=== PATIENT | male | born 1950 | race African-American/Black ===

== ENCOUNTER 2017-06-10 21:07 | Emergency (ER) | payer MEDICARE ==
[~2017-06-10] VITALS: Ht 182.8 cm; Wt 127.0 kg
[~2017-06-10 21:07] MED LIST: ABILIFY10 MG; ACCUNEB 0.0.63 MG/3; ALBUTEROL0.09 MG/A2 IH; AMOXICILLIN250 MG PO; AMOXIL250 MG/5 M PO; AMOXIL500 MG PO; ANTI-GAS80 MG PO; ASPIRIN ADULT L81 M2 PO; ATIVAN IM; ATIVAN R; ATIVAN0.5 MG PO; ATIVAN1 MG PO; ATIVAN2 MG IM; ATIVAN2 MG R; ATIVAN2 MG/ML IM; ATROVENT I0.5 MG/2.5; ATROVENT0.018 MG/A IH; AUGMENTIN 875875 MG PO; BACTRIM DS 8001 TA1 PO; BISACODYL10 MG RC; BLOOD PRESSURE MED; CEFUROXIME AXE250 MG PO; CIPRO500 MG PO; COLACE100 MG PO; COMPAZINE10 MG PO; COUMADIN1 MG PO; CRANBERRY500 M1 PO; DECADRON4 MG PO; DERMAFUNGAL T; DEXAMETHASONE0.5 MG PO; DILANTIN100 MG PO; DIOVAN40 MG PO; DOCUSATE SODIU100 M2 PO; DULCOLAX10 MG RC; DUONEB 3 MG/3 ML3 M1; FANAPT12 MG PO; FANAPT6 MG PO; FLEET ADULT ENEM1 EA R; FLURAZEPAM PO; FLURAZEPAM15 MG; GLUCAGON EMERGEN1 MG IJ; GLUCAGON EMERGEN1 MG SC; HALDOL0.5 M1 PO; HUMALOG100 U/ML SC; HUMULIN R100 U/ML; HUMULIN R100 U/ML SC; HYDROCODONE BIT1 T11 PO; INVANZ1 GM/50 ML IM; IPRATROPIUM; KEPPRA1000 MG PO; KEPPRA500 MG PO; LAMISIL AT11 TP; LANTUS100 U/ML SC; LATUDA; LATUDA60 MG PO; LAXATIVE5 MG PO; LISINOPRIL2.5 MG PO; LISINOPRIL5 MG PO; LORAZEPAM1 MG PO; LOSARTAN POTASS25 MG PO; MACROBID100 M1 PO; MAXALT MLT PO; MECLIZINE25 MG PO; METFORMIN ER500 MG PO; METFORMIN500 MG PO; METHADONE HYDRO10 MG PO; METHADONE10 MG PO; METHADOSE10 MG PO; MIRALAX17 GM PO; MIRALAX17 GM/PACK PO; MOM30 ML PO; MORPHINE S20 MG/1 ML PO; Metformin Hydr500 MG PO; NASONEX0.05 MG/AC; NEURONTIN300 MG PO; NEURONTIN400 MG PO; NEURONTIN600 MG PO; NICODERM14 MG/24 H; NOVOLIN 70/30 701 EA PO; NOVOLIN 70/30 701 EA SC; NOVOLIN 70/30 710 ML; NOVOLIN R100 U/ML SC; NOVOLOG FLEX100 U/ML SC; NOVOLOG MIX 70/33 ML SC; NOVOLOG1 UNIT/0.0 SC; NOVOLOG100 U/ML SC; NYSTATIN OINTME30 GM T; ONGLYZA5 MG PO; PERCOCET 325 MG1 TA5 PO; POTASSIUM CHLO10 MEQ PO; PRAVACHOL40 MG PO; PRILOSEC20 M1 PO; PRILOSEC20 MG PO; RANITIDINE150 MG PO; RISPERDAL0.5 MG PO; ROXANOL PO; ROXANOL RC; ROXICET 325 MG-1 TAB PO; ROXICET 325 MG/55 ML SL; SENOKOT1 TAB; SERTRALINE50 MG PO; SINEMET 25-1001 TA1 PO; SUDAFED60 M1 PO; SUMATRIPTAN SUC50 MG PO; Senokot1 TAB PO; THEO-24400 MG PO; THEOPHYLLINE 100 MG; TIMOLOL; TOPAMAX50 MG PO; TYLENOL325 M1 PO; VITAMIN D2000 IU PO; VITAMIN D32000 I1; VITAMIN D32000 IU PO; VITAMIN D32000 UNIT PO; XALATAN 0.005%2.5 ML; XALATAN 0.005%2.5 ML OPH; XALATAN 2.5 ML2.5 M1 OPH; ZANTAC 150150 MG PO; ZOFRAN ODT8 MG PO; ZOFRAN4 MG PO; [UNRECOGNIZED DRUG - OTHER]; [UNRECOGNIZED DRUG - OTHER] SL; [UNRECOGNIZED DRUG - OTHER] T; [UNRECOGNIZED DRUG - OTHER] TP; insulin SC
[2017-06-10 21:37] LABS: BASO % 0.3 % (0.0-1.0); EOS # 0.1 10*3/uL (0.0-0.4); EOS % 1.4 % (1.0-4.0); HEMATOCRIT 35.2 % (42.0-52.0); HEMOGLOBIN 11.4 g/dl (14.0-18.0); LYMPH # 3.8 10*3/uL (1.3-4.4); LYMPH % 39.7 % (27.0-41.0); MEAN CELL VOLUME 98.1 fl (80.0-94.0); MEAN CORPUSCULAR HGB 31.8 pg (27.0-31.0); MEAN CORPUSCULAR HGB CONC 32.4 g/dl (33.0-37.0); MEAN PLATELET VOLUME 9.8 fl (9.6-12.3); MONO # 0.5 10*3/uL (0.1-1.0); MONO % 5.4 % (3.0-9.0); NEUT % 52.8 % (47.0-73.0); PLATELET COUNT AUTOMATED 167 10*3/uL (130-400); RED BLOOD COUNT 3.59 10*6/uL (4.50-5.90); RED CELL DISTRI WIDTH 13.4 % (0-14.5); WHITE BLOOD COUNT 9.5 10*3/uL (4.8-10.8)
[2017-06-10 21:55] LABS: ALBUMIN 3.3 gm/dl (3.1-4.5); ALKALINE PHOSPHATASE 54 U/L (45-117); BILIRUBIN, TOTAL 0.2 mg/dl (0.2-1.0); BUN 18 mg/dl (7-24); CARBON DIOXIDE 27 mmol/L (21-32); CHLORIDE 107 mmol/L (98-107); EST GLOM FILT AFRICAN AMERICAN > 60 ml/min; GLUCOSE 252 mg/dL (65-99); POTASSIUM 3.9 mmol/L (3.5-5.1); SGOT/AST 17 IU/L (3-35); SGPT/ALT 18 U/L (12-78); SODIUM 141 mmol/L (136-145); TOTAL PROTEIN 7.8 gm/dL (6.4-8.2)
[2017-06-10 22:52] LABS: BILIRUBIN NEGATIVE (NEGATIVE); BLOOD TRACE-INTACT (NEGATIVE); CLARITY SL CLOUDY (CLEAR); COLOR YELLOW (YELLOW); GLUCOSE NEGATIVE (NEGATIVE); KETONE NEGATIVE (NEGATIVE); LEUKO ESTERASE 2+ (NEGATIVE); NITRITE POSITIVE (NEGATIVE); PH 5.5 (5.0-9.0); PROTEIN 1+ (NEGATIVE); SPECIFIC GRAVITY 1.025 (1.005-1.030); UROBILINOGEN 0.2 E.U./dl (0.2-1.0)
[2017-06-10 23:04] LABS: BACTERIA 4+; RBC 0-2 rbc/hpf (0-2); URINE REFLEX COMMENT YES (NO); WBC TNTC wbc/hpf (0-5)
[2017-06-10] MEDS ORDERED: CIPRO500 MG PO (23:20)
[2017-06-10 23:21] VITALS: BP 129/61
== END 2017-06-10 23:13 | disposition home or self-care (01) ==
LOC: ED 21:07
PROVIDERS: Emergency Medicine
DX: N39.0 Urinary tract infection, site not specified (principal); R41.82 Altered mental status, unspecified; E11.42 Type 2 diabetes mellitus with diabetic polyneuropathy; Z79.82 Long term (current) use of aspirin; Z79.899 Other long term (current) drug therapy; Z79.4 Long term (current) use of insulin; Z86.73 Personal history of transient ischemic attack (TIA), and cerebral infarction without residual deficits

== ENCOUNTER 2018-01-28 10:40 | Inpatient (IN) | payer MEDICARE ==
[~2018-01-28] VITALS: Ht 170.2 cm; Wt 112.9 kg
--- NOTE | ~2018-01-28 | CON ---
[place], [place] REPORT OF CONSULTATION NAME: ELVIA SHI UNIT #: [id number] ROOM: 530 DOCTOR: CHI VITALE,FEBRUARY BIRTHDATE: [birth year] DOS: 01/28/2018 HISTORY OF PRESENT ILLNESS: The patient is a 67-year-old -Slovenian male. He is mentally challenged, lives at [facility]. Apparently someone there had cultured a decubitus on his backside. The culture had numerous bacteria including pseudomonas, Morganella, ESBL E. coli and gram-positive cocci. They had attempted to place a PICC line on him to give him IV antibiotics there and were unsuccessful in getting the line. He was therefore sent in to [facility] for line placement. ID is consulted for possible infected sacral decubiti. He has been afebrile since admission. His WBCs are normal. The patient is alert, very poor historian due to him being mentally challenged. He does complain of pain with his buttock wounds when he is moved around and is somewhat resistive to care. He states he feels fine, having no other issues. PAST MEDICAL HISTORY: As above, as well as seizures, COPD, diabetes, again mental retardation, paranoid schizophrenia, peripheral neuropathy, TIA, glaucoma, bilateral foot surgery, cholecystectomy. SOCIAL HISTORY: Chronic [facility] resident. Nonsmoker, nondrinker. No illicit drug use. ALLERGIES: No known drug allergies. CURRENT MEDICATIONS: Include Lovenox, vancomycin, Zosyn, milk of mag, Dulcolax, Tylenol. LABORATORY DATA: Cultures of wound and blood cultures are pending. Lactic acid 2.0. WBC is 8.9, platelets 151. BUN 14, creatinine 1.24. LFTs within normal limits. REVIEW OF SYSTEMS: As above in history of present illness, unable to obtain further review of systems from patient given his cognitive status. Again, per usp also discussed, with no emesis, no diarrhea, no fevers. PHYSICAL EXAMINATION: VITAL SIGNS: Temperature 97.3, pulse 57, respirations 20, BP 143/74. GENERAL: A 67-year-old -Slovenian male, obese, in no acute distress. HEAD, EYES, EARS, NOSE AND THROAT: Normocephalic. Poor dentition. No thrush. LUNGS: Clear to auscultation bilaterally. Respirations even and unlabored. HEART: Regular rhythm. No murmur appreciated. ABDOMEN: Soft, nontender, positive bowel sounds, nondistended. EXTREMITIES: No edema. SKIN: Warm, dry, free of rashes. He has a tiny stage II in his gluteal cleft, as well as superficial stage II and now appears to be old scarring at the base of his buttocks. None of these have any sign of infection. They are all rather small, superficial. There is no induration, no surrounding discoloration, no purulent discharge, no odor. [place], [place] REPORT OF CONSULTATION NAME: ELVIA SHI UNIT #: [id number] ROOM: 530 DOCTOR: CHI VITALEFEBRUARY BIRTHDATE: [birth year] ASSESSMENT: Multiple stage II decubiti on his buttocks with no sign of infection. Culture was likely just contaminated from swab of the skin and area that would be frequently contaminated with stool, he is incontinent. PLAN: Stop all antibiotics. I did discuss the case with ____. From our standpoint, he could be discharged back to the usp with instructions that whatever they cultured is colonized, then does not need antibiotics. ADDENDUM I agree with the above plans as described after reviewing the labs, radiographs, microbiology and cultures. We will follow the patient up clinically and make adjustments appropriately. Thanks for allowing us to see the patient and participate in his care. EJFF MIRELES CNP BREANA MCCALL MD CM:CONSTR:REPORT OF CONSULTATION 1707 01/29/18 5626 interface
[2018-01-28 10:48] VITALS: BP 146/64
[2018-01-28] MEDS ORDERED: ASPIRIN81 M1 PO (11:31)
[2018-01-28 11:35] LABS: BASO % 0.2 % (0.0-1.0); EOS # 0.1 10*3/uL (0.0-0.4); EOS % 0.7 % (1.0-4.0); HEMATOCRIT 33.7 % (42.0-52.0); HEMOGLOBIN 10.8 g/dl (14.0-18.0); LYMPH # 2.8 10*3/uL (1.3-4.4); LYMPH % 31.8 % (27.0-41.0); MEAN CELL VOLUME 98.3 fl (80.0-94.0); MEAN CORPUSCULAR HGB 31.5 pg (27.0-31.0); MEAN PLATELET VOLUME 10.8 fl (9.6-12.3); MONO # 0.6 10*3/uL (0.1-1.0); MONO % 6.5 % (3.0-9.0); NEUT # 5.4 10*3/uL (2.3-7.9); NEUT % 60.4 % (47.0-73.0); PLATELET COUNT AUTOMATED 151 10*3/uL (130-400); RED BLOOD COUNT 3.43 10*6/uL (4.50-5.90); RED CELL DISTRI WIDTH 13.2 % (0-14.5); WHITE BLOOD COUNT 8.9 10*3/uL (4.8-10.8)
[2018-01-28 11:50] LABS: ALBUMIN 3.6 gm/dl (3.1-4.5); ALKALINE PHOSPHATASE 48 U/L (45-117); BUN 14 mg/dl (7-24); CHLORIDE 102 mmol/L (98-107); CREATININE 1.24 mg/dL (0.70-1.30); POTASSIUM 4.2 mmol/L (3.5-5.1); SGOT/AST 14 IU/L (3-35); SGPT/ALT 13 U/L (12-78); SODIUM 138 mmol/L (136-145)
[2018-01-28] MEDS ORDERED: CORRECTOL5 M1 PO (13:08)
[2018-01-28] MEDS ORDERED: ATORVASTATIN CA10 M1 PO (13:08)
[2018-01-28] MEDS ORDERED: CRANBERRY250 MG PO (13:09)
[2018-01-28] MEDS ORDERED: BYETTA10 MCG/0.1 SC (13:09)
[2018-01-28] MEDS ORDERED: FLOMAX0.4 MG PO (13:19)
[2018-01-28] MEDS ORDERED: GABAPENTIN600 MG PO (13:20)
[2018-01-28] MEDS ORDERED: HUMALOG100 UNIT/1 SQ ×2 (13:20→13:21)
[2018-01-28] MEDS ORDERED: PROBIOTIC GOLD1 EACH PO (13:22)
[2018-01-28] MEDS ORDERED: KEPPRA500 MG PO (13:22)
[2018-01-28] MEDS ORDERED: LORAZEPAM1 MG PO (13:23)
[2018-01-28] MEDS ORDERED: XALATAN 2.5 ML2.5 ML OP (13:23)
[2018-01-28] MEDS ORDERED: LORAZEPAM2 MG/1 ML IJ (13:23)
[2018-01-28] MEDS ORDERED: LOSARTAN POTASS25 M1 PO (13:24)
[2018-01-28] MEDS ORDERED: DOLOPHINE HCL10 MG PO (13:24)
[2018-01-28] MEDS ORDERED: MIRALAX POWDER255 G1 PO (13:25)
[2018-01-28] MEDS ORDERED: TOUJEO SOL300 UNIT/1 SQ (13:26)
[2018-01-28] MEDS ORDERED: MILK OF MA400 MG/51 PO (13:26)
[2018-01-28] MEDS ORDERED: TRADJENTA5 M1 PO (13:27)
[2018-01-28] MEDS ORDERED: VITAMIN D32000 UNIT PO (13:27)
[2018-01-28] MEDS ORDERED: TYLENOL325 M1 PO (13:27)
[2018-01-28 13:32] VITALS: BP 140/60
[2018-01-28 14:00] VITALS: BP 127/53
[2018-01-28 16:23] VITALS: BP 143/74
== END 2018-01-28 19:17 | DRG 593 ==
LOC: ED 10:40 → EDHOLD 12:43 → 5E 13:02
PROVIDERS: Student in an Organized Health Care Education/Training Program
DX: L89.152 Pressure ulcer of sacral region, stage 2 (principal); E87.2 Acidosis; L89.312 Pressure ulcer of right buttock, stage 2; G40.919 Epilepsy, unspecified, intractable, without status epilepticus; L89.322 Pressure ulcer of left buttock, stage 2; E11.42 Type 2 diabetes mellitus with diabetic polyneuropathy; M62.82 Rhabdomyolysis; F20.0 Paranoid schizophrenia; J44.9 Chronic obstructive pulmonary disease, unspecified; E11.39 Type 2 diabetes mellitus with other diabetic ophthalmic complication; H40.9 Unspecified glaucoma; L08.9 Local infection of the skin and subcutaneous tissue, unspecified; D64.9 Anemia, unspecified; R00.1 Bradycardia, unspecified; E11.65 Type 2 diabetes mellitus with hyperglycemia; G89.4 Chronic pain syndrome; F79 Unspecified intellectual disabilities; F41.9 Anxiety disorder, unspecified; K21.9 Gastro-esophageal reflux disease without esophagitis; E78.5 Hyperlipidemia, unspecified; I10 Essential (primary) hypertension; Z66 Do not resuscitate; Z51.5 Encounter for palliative care; D22.9 Melanocytic nevi, unspecified; E78.00 Pure hypercholesterolemia, unspecified; G47.00 Insomnia, unspecified; B96.5 Pseudomonas (aeruginosa) (mallei) (pseudomallei) as the cause of diseases classified elsewhere; B96.20 Unspecified Escherichia coli [E. coli] as the cause of diseases classified elsewhere; B96.4 Proteus (mirabilis) (morganii) as the cause of diseases classified elsewhere; Z86.73 Personal history of transient ischemic attack (TIA), and cerebral infarction without residual deficits; Z87.440 Personal history of urinary (tract) infections; Z90.49 Acquired absence of other specified parts of digestive tract; Z79.899 Other long term (current) drug therapy; Z79.82 Long term (current) use of aspirin; Z79.4 Long term (current) use of insulin; Z87.891 Personal history of nicotine dependence

== ENCOUNTER 2018-06-15 21:16 | Emergency (ER) | payer MEDICARE ==
[~2018-06-15] VITALS: Ht 170.1 cm; Wt 136.1 kg
--- NOTE | ~2018-06-15 | EKG ---
[place], [place] ELECTROCARDIOGRAM REPORT NAME: ELVIA SHI UNIT #: [id number] ROOM: DOCTOR: EPIPHANY DRAFT REPORT BIRTHDATE: [birth year] [facility] Test Date: 2018-06-15 Test Time: 22:21:17 Pat Name: ELVIA SHI Department: Room: Gender: Soft Tile Setter: SS RESP : 1950 Requested By: JESUS HENDRICKSON PA-C Order Number: [id number] Reading MD: Delbert Stephens MD Measurements Intervals [place] Rate: 52 P: 39 IN: 185 QRS: -7 QRSD: 100 T: -11 QT: 450 QTc: 419 Interpretive Statements Sinus rhythm Borderline T abnormalities, inferior leads Electronically Signed On 06-16-2018 11:13:47 PDT by Delbert Stephens MD CM:EKGRPT:ELECTROCARDIOGRAM REPORT [id number] JESUS HENDRICKSON PA-C EPIPHANY DRAFT REPORT JESUS HENDRICKSON PA-C
[~2018-06-15 21:16] MED LIST changes: +ASPIRIN81 M1 PO; +ATORVASTATIN CA10 M1 PO; +BYETTA10 MCG/0.1 SC; +CORRECTOL5 M1 PO; +CRANBERRY250 MG PO; +DOLOPHINE HCL10 MG PO; +FLOMAX0.4 MG PO; +GABAPENTIN600 MG PO; +HUMALOG100 UNIT/1 SQ; +LORAZEPAM2 MG/1 ML IJ; +LOSARTAN POTASS25 M1 PO; +MILK OF MA400 MG/51 PO; +MIRALAX POWDER255 G1 PO; +PROBIOTIC GOLD1 EACH PO; +TOUJEO SOL300 UNIT/1 SQ; +TRADJENTA5 M1 PO; +XALATAN 2.5 ML2.5 ML OP
[2018-06-15 21:18] VITALS: BP 120/50
[2018-06-15] MEDS ORDERED: ARTIFICIAL TEAR30 M4 IO (21:21)
[2018-06-15] MEDS ORDERED: LIPITOR10 MG PO (21:22)
[2018-06-15] MEDS ORDERED: BISACODYL LAXATI5 MG PO (21:22)
[2018-06-15] MEDS ORDERED: ASPIRIN CHEWABL81 MG PO (21:22)
[2018-06-15] MEDS ORDERED: BYETTA10 MCG/0.1 SC (21:23)
[2018-06-15] MEDS ORDERED: FLOMAX0.4 MG PO (21:24)
[2018-06-15] MEDS ORDERED: CRANBERRY200 MG PO (21:24)
[2018-06-15] MEDS ORDERED: KEPPRA500 MG PO (21:25)
[2018-06-15] MEDS ORDERED: NEURONTIN300 MG PO (21:25)
[2018-06-15] MEDS ORDERED: XALATAN 0.005%2.5 ML INTRAOC (21:26)
[2018-06-15] MEDS ORDERED: ATIVAN1 MG PO (21:27)
[2018-06-15] MEDS ORDERED: COZAAR25 M1 PO (21:27)
[2018-06-15] MEDS ORDERED: ATIVAN2 MG/1 ML IM (21:27)
[2018-06-15] MEDS ORDERED: METHADONE HCL10 MG PO (21:28)
[2018-06-15] MEDS ORDERED: MIRALAX17 GM PO (21:29)
[2018-06-15] MEDS ORDERED: MILK OF MA400 MG/5 M PO (21:29)
[2018-06-15] MEDS ORDERED: TRAD5TAB1 PO (21:30)
[2018-06-15] MEDS ORDERED: TOUJEO SOL300 UNIT/1 SQ (21:30)
[2018-06-15] MEDS ORDERED: RENAL-VITE TAB0.8 MG PO (21:30)
[2018-06-15] MEDS ORDERED: TYLENOL325 M1 PO (21:31)
[2018-06-15] MEDS ORDERED: VITAMIN D32000 UNIT PO (21:31)
[2018-06-15 22:29] LABS: BILIRUBIN NEGATIVE (NEGATIVE); BLOOD TRACE-INTACT (NEGATIVE); CLARITY SL CLOUDY (CLEAR); COLOR YELLOW (YELLOW); GLUCOSE NEGATIVE (NEGATIVE); KETONE NEGATIVE (NEGATIVE); LEUKO ESTERASE 1+ (NEGATIVE); NITRITE POSITIVE (NEGATIVE); PH 5.5 (5.0-9.0); SPECIFIC GRAVITY 1.025 (1.005-1.030); UROBILINOGEN 0.2 E.U./dl (0.2-1.0)
[2018-06-15 22:38] LABS: BACTERIA 3+; WBC 21-30 wbc/hpf (0-5)
[2018-06-15 23:19] LABS: BASO % 0.4 % (0.0-1.0); EOS # 0.1 10*3/uL (0.0-0.4); EOS % 1.2 % (1.0-4.0); HEMATOCRIT 32.8 % (42.0-52.0); HEMOGLOBIN 10.5 g/dl (14.0-18.0); LYMPH # 2.7 10*3/uL (1.3-4.4); MEAN CELL VOLUME 95.3 fl (80.0-94.0); MEAN CORPUSCULAR HGB 30.5 pg (27.0-31.0); MEAN PLATELET VOLUME 10.6 fl (9.6-12.3); MONO # 0.5 10*3/uL (0.1-1.0); MONO % 7.6 % (3.0-9.0); NEUT # 3.6 10*3/uL (2.3-7.9); NEUT % 51.7 % (47.0-73.0); PLATELET COUNT AUTOMATED 162 10*3/uL (130-400); RED BLOOD COUNT 3.44 10*6/uL (4.50-5.90); RED CELL DISTRI WIDTH 13.2 % (0-14.5); WHITE BLOOD COUNT 6.9 10*3/uL (4.8-10.8)
[2018-06-15 23:30] LABS: ACT PARTIAL THROMBO TIME 22.5 SECONDS (20.8-31.5)
[2018-06-15 23:36] LABS: ALBUMIN 3.5 gm/dl (3.1-4.5); ALKALINE PHOSPHATASE 43 U/L (45-117); BUN 12 mg/dl (7-24); CHLORIDE 108 mmol/L (98-107); CREATININE 1.12 mg/dL (0.70-1.30); POTASSIUM 4.2 mmol/L (3.5-5.1); SGOT/AST 9 IU/L (3-35); SGPT/ALT 12 U/L (12-78); SODIUM 144 mmol/L (136-145); TOTAL PROTEIN 7.4 gm/dL (6.4-8.2)
[2018-06-15 23:37] LABS: TROPONIN I < 0.015 ng/ml (<0.045)
[2018-06-15] MEDS ORDERED: OMNICEF300 MG PO (23:55)
== END 2018-06-16 00:59 | disposition other institution (70) ==
LOC: ED 21:16
PROVIDERS: Physician Assistant
DX: N39.0 Urinary tract infection, site not specified (principal); M54.5 Low back pain; M25.552 Pain in left hip; Z79.899 Other long term (current) drug therapy; Z79.82 Long term (current) use of aspirin; W19.XXXA Unspecified fall, initial encounter; Y93.89 Activity, other specified; Y92.89 Other specified places as the place of occurrence of the external cause; Y99.8 Other external cause status

== ENCOUNTER 2018-06-18 04:33 | Emergency (ER) | payer MEDICARE ==
[~2018-06-18] VITALS: Ht 175.2 cm; Wt 127.0 kg
--- NOTE | ~2018-06-18 | EKG ---
[place], [place] ELECTROCARDIOGRAM REPORT NAME: ELVIA SHI UNIT #: [id number] ROOM: DOCTOR: EPIPHANY DRAFT REPORT BIRTHDATE: [birth year] [facility] Test Date: 2018-06-18 Test Time: 04:50:49 Pat Name: ELVIA SHI Department: ER Room: 1 Gender: M Health Informatics Specialist: AISHA : 1950 Requested By: NARCISO MARADIAGA Order Number: [id number] Reading MD: Nj Poole MD Measurements Intervals [place] Rate: 67 P: 53 GA: 192 QRS: -25 QRSD: 98 T: 19 QT: 425 QTc: 449 Interpretive Statements Sinus rhythm Borderline left axis deviation Compared to ECG 06/15/2018 22:21:17 No significant change Electronically Signed On 06-19-2018 18:57:23 PDT by Nj Poole MD CM:EKGRPT:ELECTROCARDIOGRAM REPORT [id number] [id number] NARCISO YOON DRAFT REPORT NARCISO MARADIAGA DO
[~2018-06-18 04:33] MED LIST changes: +ARTIFICIAL TEAR30 M4 IO; +ASPIRIN CHEWABL81 MG PO; +ATIVAN2 MG/1 ML IM; +BISACODYL LAXATI5 MG PO; +COZAAR25 M1 PO; +CRANBERRY200 MG PO; +LIPITOR10 MG PO; +METHADONE HCL10 MG PO; +MILK OF MA400 MG/5 M PO; +OMNICEF300 MG PO; +RENAL-VITE TAB0.8 MG PO; +TRAD5TAB1 PO; +XALATAN 0.005%2.5 ML INTRAOC
[2018-06-18 05:02] LABS: BASO % 0.3 % (0.0-1.0); EOS # 0.1 10*3/uL (0.0-0.4); EOS % 1.3 % (1.0-4.0); HEMATOCRIT 33.1 % (42.0-52.0); HEMOGLOBIN 10.3 g/dl (14.0-18.0); LYMPH # 3.1 10*3/uL (1.3-4.4); LYMPH % 44.2 % (27.0-41.0); MEAN CELL VOLUME 97.1 fl (80.0-94.0); MEAN CORPUSCULAR HGB 30.2 pg (27.0-31.0); MEAN CORPUSCULAR HGB CONC 31.1 g/dl (33.0-37.0); MEAN PLATELET VOLUME 10.9 fl (9.6-12.3); MONO # 0.5 10*3/uL (0.1-1.0); MONO % 7.4 % (3.0-9.0); NEUT # 3.3 10*3/uL (2.3-7.9); NEUT % 46.7 % (47.0-73.0); PLATELET COUNT AUTOMATED 158 10*3/uL (130-400); RED BLOOD COUNT 3.41 10*6/uL (4.50-5.90); RED CELL DISTRI WIDTH 13.3 % (0-14.5); WHITE BLOOD COUNT 7.1 10*3/uL (4.8-10.8)
[2018-06-18 05:13] LABS: ACT PARTIAL THROMBO TIME 21.9 SECONDS (20.8-31.5)
[2018-06-18 05:24] LABS: ALBUMIN 3.5 gm/dl (3.1-4.5); ALKALINE PHOSPHATASE 62 U/L (45-117); BUN 12 mg/dl (7-24); CHLORIDE 108 mmol/L (98-107); CREATININE 1.27 mg/dL (0.70-1.30); POTASSIUM 4.1 mmol/L (3.5-5.1); SGOT/AST 13 IU/L (3-35); SGPT/ALT 12 U/L (12-78); SODIUM 145 mmol/L (136-145); TOTAL PROTEIN 7.5 gm/dL (6.4-8.2)
[2018-06-18 05:27] LABS: TROPONIN I < 0.015 ng/ml (<0.045)
[2018-06-18 06:43] VITALS: BP 102/60
[2018-06-18 06:52] LABS: BILIRUBIN NEGATIVE (NEGATIVE); BLOOD TRACE-LYSED (NEGATIVE); CLARITY CLOUDY (CLEAR); COLOR YELLOW (YELLOW); GLUCOSE 1+ (NEGATIVE); KETONE NEGATIVE (NEGATIVE); LEUKO ESTERASE 1+ (NEGATIVE); NITRITE POSITIVE (NEGATIVE); PH 5.5 (5.0-9.0); SPECIFIC GRAVITY >= 1.030 (1.005-1.030); UROBILINOGEN 0.2 E.U./dl (0.2-1.0)
[2018-06-18 07:02] LABS: BACTERIA 4+; EPITHELIAL CELLS 16-20; WBC TNTC wbc/hpf (0-5)
== END 2018-06-18 06:55 ==
LOC: ED 04:33
PROVIDERS: Student in an Organized Health Care Education/Training Program
DX: R56.9 Unspecified convulsions (principal); G89.29 Other chronic pain; J44.9 Chronic obstructive pulmonary disease, unspecified; E11.9 Type 2 diabetes mellitus without complications; Z90.49 Acquired absence of other specified parts of digestive tract; Z79.82 Long term (current) use of aspirin; Z79.899 Other long term (current) drug therapy

== ENCOUNTER 2018-06-19 09:27 | Emergency (ER) | payer MEDICARE ==
[~2018-06-19] VITALS: Wt 113.9 kg
[2018-06-19 12:27] VITALS: BP 152/70
== END 2018-06-19 11:11 ==
LOC: ED 09:27
DX: R13.10 Dysphagia, unspecified (principal); J44.9 Chronic obstructive pulmonary disease, unspecified; E11.42 Type 2 diabetes mellitus with diabetic polyneuropathy; Z86.73 Personal history of transient ischemic attack (TIA), and cerebral infarction without residual deficits; Z79.899 Other long term (current) drug therapy; Z79.02 Long term (current) use of antithrombotics/antiplatelets; Z79.4 Long term (current) use of insulin

== ENCOUNTER 2018-09-29 00:07 | Emergency (ER) | payer MEDICARE ==
[~2018-09-29] VITALS: Wt 167.8 kg
--- NOTE | ~2018-09-29 | EKG ---
[place], [place] ELECTROCARDIOGRAM REPORT NAME: ELVIA SHI UNIT #: [id number] ROOM: DOCTOR: EPIPHANY DRAFT REPORT BIRTHDATE: [birth year] [facility] Test Date: 2018-09-29 Test Time: 00:13:43 Pat Name: ELVIA SHI Department: ER Room: Gender: M Technical Sme: : 1950 Requested By: NORA CAPELLAN Order Number: [id number] Reading MD: Nj Poole MD Measurements Intervals [place] Rate: 52 P: 40 MT: 188 QRS: -26 QRSD: 97 T: 11 QT: 453 QTc: 422 Interpretive Statements Sinus bradycardia Borderline left axis deviation Compared to ECG 06/18/2018 04:50:49 No significant changes Electronically Signed On 09-29-2018 14:10:25 PDT by Nj Poole MD CM:EKGRPT:ELECTROCARDIOGRAM REPORT [id number] [id number] NORA YOON DRAFT REPORT NORA CAPELLAN DO
[2018-09-29 00:29] LABS: BASO % 0.4 % (0.0-1.0); EOS # 0.1 10*3/uL (0.0-0.4); EOS % 1.6 % (1.0-4.0); HEMATOCRIT 32.6 % (42.0-52.0); HEMOGLOBIN 10.5 g/dl (14.0-18.0); LYMPH # 2.8 10*3/uL (1.3-4.4); LYMPH % 36.1 % (27.0-41.0); MEAN CELL VOLUME 96.7 fl (80.0-94.0); MEAN CORPUSCULAR HGB 31.2 pg (27.0-31.0); MEAN CORPUSCULAR HGB CONC 32.2 g/dl (33.0-37.0); MEAN PLATELET VOLUME 10.9 fl (9.6-12.3); MONO # 0.5 10*3/uL (0.1-1.0); MONO % 6.2 % (3.0-9.0); NEUT # 4.2 10*3/uL (2.3-7.9); NEUT % 55.4 % (47.0-73.0); PLATELET COUNT AUTOMATED 179 10*3/uL (130-400); RED BLOOD COUNT 3.37 10*6/uL (4.50-5.90); RED CELL DISTRI WIDTH 13.7 % (0-14.5); WHITE BLOOD COUNT 7.6 10*3/uL (4.8-10.8)
[2018-09-29 00:39] LABS: ACT PARTIAL THROMBO TIME 21.1 SECONDS (20.8-31.5)
[2018-09-29 00:45] LABS: ALBUMIN 3.3 gm/dl (3.1-4.5); ALKALINE PHOSPHATASE 49 U/L (45-117); BUN 12 mg/dl (7-24); CHLORIDE 107 mmol/L (98-107); CREATININE 1.26 mg/dL (0.70-1.30); POTASSIUM 4.9 mmol/L (3.5-5.1); SGOT/AST 16 IU/L (3-35); SGPT/ALT 13 U/L (12-78); SODIUM 141 mmol/L (136-145); TOTAL PROTEIN 7.3 gm/dL (6.4-8.2)
[2018-09-29 00:50] LABS: TROPONIN I < 0.015 ng/ml (<0.045)
[2018-09-29 01:51] VITALS: BP 135/61
[2018-09-29] MEDS ORDERED: ULTRAM50 MG PO (18:23)
== END 2018-09-29 03:00 | disposition other institution (70) ==
LOC: ED 00:07
PROVIDERS: Emergency Medicine
DX: R07.9 Chest pain, unspecified (principal); L89.312 Pressure ulcer of right buttock, stage 2; L89.322 Pressure ulcer of left buttock, stage 2; R23.4 Changes in skin texture; J44.9 Chronic obstructive pulmonary disease, unspecified; E11.42 Type 2 diabetes mellitus with diabetic polyneuropathy; Z79.899 Other long term (current) drug therapy; Z79.82 Long term (current) use of aspirin; Z86.718 Personal history of other venous thrombosis and embolism

== ENCOUNTER 2018-09-29 17:42 | Emergency (ER) | payer MEDICARE ==
[~2018-09-29] VITALS: Wt 95.3 kg
[2018-09-29 17:44] VITALS: BP 141/62
[2018-09-29] MEDS ORDERED: ULTRAM50 MG PO (18:23)
== END 2018-09-29 18:29 ==
LOC: ED 17:42
DX: L89.321 Pressure ulcer of left buttock, stage 1 (principal); L89.311 Pressure ulcer of right buttock, stage 1; J44.9 Chronic obstructive pulmonary disease, unspecified; E11.9 Type 2 diabetes mellitus without complications; Z79.899 Other long term (current) drug therapy; Z79.82 Long term (current) use of aspirin; Z79.4 Long term (current) use of insulin; Z86.718 Personal history of other venous thrombosis and embolism

== ENCOUNTER 2018-10-31 17:11 | Inpatient (IN) | payer MEDICARE ==
[~2018-10-31] VITALS: Ht 170.2 cm; Wt 115.8 kg
[2018-10-31] VITALS (7 sets, daily range): BP systolic 118–144; BP diastolic 49–100
--- NOTE | ~2018-10-31 | EKG ---
[place], [place] ELECTROCARDIOGRAM REPORT NAME: ELVIA SHI UNIT #: [id number] ROOM: 402 DOCTOR: DURGA DRAFT REPORT BIRTHDATE: [birth year] [facility] Test Date: 2018-10-31 Test Time: 17:51:57 Pat Name: ELVIA SHI Department: Room: 402 Gender: M Orthopedic Podiatrist: EKG.PA : 1950 Requested By: SUMMER VICTOR Order Number: [id number] Reading MD: Nj Poole MD Measurements Intervals [place] Rate: 92 P: 43 AR: 176 QRS: -25 QRSD: 88 T: 33 QT: 337 QTc: 417 Interpretive Statements Sinus rhythm Borderline left axis deviation Compared to ECG 09/29/2018 00:13:43 Sinus bradycardia no longer present Electronically Signed On 10-31-2018 21:30:41 PST by Nj Poole MD CM:EKGRPT:ELECTROCARDIOGRAM REPORT [id number] SUMMER YOON DRAFT REPORT SUMMER VICTOR DO
[~2018-10-31 17:11] MED LIST changes: +ULTRAM50 MG PO
[2018-10-31 18:26] LABS: BASO % 0.2 % (0.0-1.0); EOS % 0.1 % (1.0-4.0); HEMATOCRIT 30.5 % (42.0-52.0); HEMOGLOBIN 9.9 g/dl (14.0-18.0); LYMPH # 1.4 10*3/uL (1.3-4.4); LYMPH % 10.3 % (27.0-41.0); MEAN CELL VOLUME 96.5 fl (80.0-94.0); MEAN CORPUSCULAR HGB 31.3 pg (27.0-31.0); MEAN CORPUSCULAR HGB CONC 32.5 g/dl (33.0-37.0); MEAN PLATELET VOLUME 10.6 fl (9.6-12.3); MONO # 0.9 10*3/uL (0.1-1.0); MONO % 6.5 % (3.0-9.0); NEUT # 10.9 10*3/uL (2.3-7.9); NEUT % 82.4 % (47.0-73.0); PLATELET COUNT AUTOMATED 117 10*3/uL (130-400); RED BLOOD COUNT 3.16 10*6/uL (4.50-5.90); RED CELL DISTRI WIDTH 13.8 % (0-14.5); WHITE BLOOD COUNT 13.3 10*3/uL (4.8-10.8)
[2018-10-31 18:39] LABS: ACT PARTIAL THROMBO TIME 26.5 SECONDS (20.8-31.5); INTERNATIONAL NORM RATIO 1.1 (2.0-3.5)
[2018-10-31 18:41] LABS: ALBUMIN 2.9 gm/dl (3.1-4.5); ALKALINE PHOSPHATASE 54 U/L (45-117); BUN 10 mg/dl (7-24); CHLORIDE 104 mmol/L (98-107); CREATININE 1.17 mg/dL (0.70-1.30); LIPASE 74 U/L (73-393); POTASSIUM 4.5 mmol/L (3.5-5.1); SGOT/AST 12 IU/L (3-35); SGPT/ALT 9 U/L (12-78); SODIUM 141 mmol/L (136-145); TOTAL PROTEIN 7.3 gm/dL (6.4-8.2); TROPONIN I 0.042 ng/ml (<0.045)
[2018-10-31 19:02] LABS: BILIRUBIN NEGATIVE (NEGATIVE); BLOOD 2+ (NEGATIVE); CLARITY SL CLOUDY (CLEAR); COLOR YELLOW (YELLOW); GLUCOSE NEGATIVE (NEGATIVE); KETONE NEGATIVE (NEGATIVE); LEUKO ESTERASE NEGATIVE (NEGATIVE); NITRITE NEGATIVE (NEGATIVE); PH 7.5 (5.0-9.0)
[2018-10-31 19:41] LABS: BACTERIA 1+
[2018-11-01] VITALS: BP 133/82
[2018-11-01] MEDS ORDERED: NORVASC2.5 MG PO
[2018-11-01] MEDS ORDERED: MOBIC15 MG PO
[2018-11-01] MEDS ORDERED: RISPERDAL1 M1 PO (00:01)
[2018-11-01 01:51] LABS: BASO % 0.1 % (0.0-1.0); HEMATOCRIT 26.8 % (42.0-52.0); HEMOGLOBIN 8.7 g/dl (14.0-18.0); LYMPH # 1.1 10*3/uL (1.3-4.4); LYMPH % 10.9 % (27.0-41.0); MEAN CELL VOLUME 97.1 fl (80.0-94.0); MEAN CORPUSCULAR HGB 31.5 pg (27.0-31.0); MEAN CORPUSCULAR HGB CONC 32.5 g/dl (33.0-37.0); MEAN PLATELET VOLUME 9.1 fl (9.6-12.3); MONO # 0.5 10*3/uL (0.1-1.0); MONO % 5.4 % (3.0-9.0); NEUT # 8.2 10*3/uL (2.3-7.9); NEUT % 82.7 % (47.0-73.0); PLATELET COUNT AUTOMATED 97 10*3/uL (130-400); RED BLOOD COUNT 2.76 10*6/uL (4.50-5.90)
[2018-11-01 02:09] LABS: ALBUMIN 2.6 gm/dl (3.1-4.5); ALKALINE PHOSPHATASE 43 U/L (45-117); BUN 12 mg/dl (7-24); CHLORIDE 104 mmol/L (98-107); CREATININE 1.21 mg/dL (0.70-1.30); PHOSPHOROUS 1.9 mg/dL (2.5-4.9); POTASSIUM 4.5 mmol/L (3.5-5.1); SGOT/AST 16 IU/L (3-35); SGPT/ALT 10 U/L (12-78); SODIUM 138 mmol/L (136-145)
[2018-11-01 02:17] LABS: THYROID STIM HORMONE (HS) 0.328 uIU/ml (0.358-4.75)
[2018-11-01 06:08] VITALS: BP 140/66
[2018-11-01 08:00] VITALS: BP 129/62
[2018-11-01 12:00] VITALS: BP 131/65
[2018-11-01 16:00] VITALS: BP 136/62
[2018-11-01 20:00] VITALS: BP 128/51
[2018-11-02] VITALS: BP 128/54
[2018-11-02 07:02] LABS: BASO % 0.1 % (0.0-1.0); EOS % 0.4 % (1.0-4.0); HEMATOCRIT 28.8 % (42.0-52.0); HEMOGLOBIN 8.9 g/dl (14.0-18.0); LYMPH # 1.5 10*3/uL (1.3-4.4); LYMPH % 19.3 % (27.0-41.0); MEAN CELL VOLUME 98.3 fl (80.0-94.0); MEAN CORPUSCULAR HGB 30.4 pg (27.0-31.0); MEAN CORPUSCULAR HGB CONC 30.9 g/dl (33.0-37.0); MEAN PLATELET VOLUME 11.2 fl (9.6-12.3); MONO # 0.7 10*3/uL (0.1-1.0); MONO % 8.9 % (3.0-9.0); NEUT # 5.6 10*3/uL (2.3-7.9); NEUT % 70.8 % (47.0-73.0); PLATELET COUNT AUTOMATED 106 10*3/uL (130-400); RED BLOOD COUNT 2.93 10*6/uL (4.50-5.90); RED CELL DISTRI WIDTH 13.8 % (0-14.5)
[2018-11-02 07:22] LABS: ALBUMIN 2.4 gm/dl (3.1-4.5); ALKALINE PHOSPHATASE 45 U/L (45-117); BUN 14 mg/dl (7-24); CHLORIDE 108 mmol/L (98-107); CREATININE 1.25 mg/dL (0.70-1.30); POTASSIUM 4.6 mmol/L (3.5-5.1); SGOT/AST 22 IU/L (3-35); SGPT/ALT 14 U/L (12-78); SODIUM 142 mmol/L (136-145); TOTAL PROTEIN 6.3 gm/dL (6.4-8.2)
[2018-11-02 08:00] VITALS: BP 128/78
[2018-11-02 12:00] VITALS: BP 119/54
[2018-11-02] MEDS ORDERED: ATIVAN1 MG PO (14:24)
[2018-11-02] MEDS ORDERED: METHADONE HCL10 MG PO (14:24)
[2018-11-02] MEDS ORDERED: ATIVAN2 MG/1 ML IM (14:24)
[2018-11-02 16:00] VITALS: BP 137/58
== END 2018-11-02 18:05 | DRG 871 ==
LOC: ED 17:11 → 4E 21:54 → EDHOLD 21:54 → 4E 22:31
PROVIDERS: Emergency Medicine; Internal Medicine
DX: A41.9 Sepsis, unspecified organism (principal); G93.41 Metabolic encephalopathy; E43 Unspecified severe protein-calorie malnutrition; E72.20 Disorder of urea cycle metabolism, unspecified; F20.0 Paranoid schizophrenia; E11.42 Type 2 diabetes mellitus with diabetic polyneuropathy; G40.909 Epilepsy, unspecified, not intractable, without status epilepticus; N40.0 Benign prostatic hyperplasia without lower urinary tract symptoms; K52.9 Noninfective gastroenteritis and colitis, unspecified; G89.29 Other chronic pain; F79 Unspecified intellectual disabilities; D64.9 Anemia, unspecified; H40.9 Unspecified glaucoma; R13.10 Dysphagia, unspecified; L89.159 Pressure ulcer of sacral region, unspecified stage; L89.899 Pressure ulcer of other site, unspecified stage; D69.6 Thrombocytopenia, unspecified; E11.65 Type 2 diabetes mellitus with hyperglycemia; K76.0 Fatty (change of) liver, not elsewhere classified; E55.9 Vitamin D deficiency, unspecified; E66.09 Other obesity due to excess calories; J44.9 Chronic obstructive pulmonary disease, unspecified; Z91.81 History of falling; Z87.440 Personal history of urinary (tract) infections; Z86.73 Personal history of transient ischemic attack (TIA), and cerebral infarction without residual deficits; Z90.49 Acquired absence of other specified parts of digestive tract; Z83.3 Family history of diabetes mellitus; Z82.49 Family history of ischemic heart disease and other diseases of the circulatory system; Z80.8 Family history of malignant neoplasm of other organs or systems; Z79.82 Long term (current) use of aspirin; Z79.4 Long term (current) use of insulin; Z79.899 Other long term (current) drug therapy

== ENCOUNTER 2018-12-27 03:06 | Inpatient (IN) | payer MEDICARE ==
[~2018-12-27] VITALS: Ht 177.8 cm; Wt 110.7 kg
[2018-12-27] VITALS (12 sets, daily range): BP systolic 103–145; BP diastolic 46–81
--- NOTE | ~2018-12-27 | PR ---
[place], [place] PROGRESS NOTE NAME: [id number] UNIT #: [id number] ROOM: 428 DOCTOR: LEONOR MIRELES CNP BIRTHDATE: [birth year] DOS: 12/30/2018 SUBJECTIVE: The patient is a 68-year-old male who is being followed for group B strep septicemia. He had positive blood cultures on admission on the December 27. Repeat blood cultures from later on December 27 remaine sterile. He had a lumbar puncture done. CSF cultures are sterile. His MRSA screen was positive. He remains on clindamycin and Rocephin. There is concern regarding his group B strep septicemia. It is felt that it may have come from his poor dentition. He did have a CT of the neck, which shows a large thyroid mass. No abscesses. Also pleural parenchymal mass is in the right upper lobe concerning for neoplasm and with mediastinal adenopathy and possible rib destruction associated with these findings, his POA did not want any further workup. The patient is nonambulatory. He does complain of back pain, which he states is better than it was previously. No nausea or vomiting. Some nonproductive cough that started today. No shortness of breath. LABORATORY DATA: Cultures as reviewed above. WBC 6.2, platelets 126. BUN 12, creatinine 1.15. PHYSICAL EXAMINATION: VITAL SIGNS: Temperature 98.6, pulse 56, respirations 18, BP 142/63. GENERAL: A 68-year-old male, in no acute distress. HEAD, EYES, EARS, NOSE AND THROAT: Normocephalic. No thrush. Poor dentition. He does have strabismus. LUNGS: Diminished bilaterally. Respirations even and unlabored. HEART: Regular rhythm. No murmur appreciated. He does have some thoracic tenderness around T8 and T9. ABDOMEN: Soft, nontender, nondistended. EXTREMITIES: No edema. He has bilateral foot drop. SKIN: Warm, dry, free of rashes. The patient not rolled at his request. ASSESSMENT: Group B streptococcal septicemia, possibly due to poor dentition. PLAN: Continue Rocephin and clindamycin, follow up on repeat blood cultures. ADDENDUM I agree with the assessment and plan done by the nurse practitioner, Leonor Mireles. I reviewed the labs and imaging and made the necessary changes in the note. FEBRUARY WINIFRED MIRELES [place], [place] PROGRESS NOTE NAME: ELVIA SHI UNIT #: [id number] ROOM: 428 DOCTOR: CHI BIRTHDATE: [birth year] Theresacaity Remy MD CM:PNTRANS [id number] FEBRUARY CHI VITALE 01/04/19 1052 interface
--- NOTE | ~2018-12-27 | EKG ---
[place], [place] ELECTROCARDIOGRAM REPORT NAME: ELVIA SHI UNIT #: [id number] ROOM: [facility] DOCTOR: DURGA DRAFT REPORT BIRTHDATE: [birth year] [facility] Test Date: 2018-12-27 Test Time: 03:24:06 Pat Name: ELVIA SHI Department: Room: [facility] Gender: M Ncr Operator: Eloisa Alanis : 1950 Requested By: NARCISO MARADIAGA Order Number: [id number] Reading MD: Nj Poole MD Measurements Intervals [place] Rate: 112 P: 49 WI: 200 QRS: -41 QRSD: 90 T: 84 QT: 346 QTc: 473 Interpretive Statements Sinus tachycardia Probable left atrial enlargement Abnormal R-wave progression, late transition Left ventricular hypertrophy Nonspecific T abnormalities, lateral leads Compared to ECG 10/31/2018 17:51:57 Left ventricular hypertrophy now present T-wave abnormality now present Sinus rhythm no longer present Electronically Signed On 12-27-2018 15:49:49 PST by Nj Poole MD CM:EKGRPT:ELECTROCARDIOGRAM REPORT [id number] NARCISO YOON DRAFT REPORT NARCISO MARADIAGA DO
[~2018-12-27 03:06] MED LIST changes: -BISACODYL LAXATI5 MG PO; +DULCOLAX5 M1 PO; +MOBIC15 MG PO; +NORVASC2.5 MG PO; +RISPERDAL2 M1 PO
[2018-12-27] MEDS ORDERED: PEPCID40 MG PO (03:16)
[2018-12-27] MEDS ORDERED: METHADONE HCL10 MG PO (03:17)
[2018-12-27 03:28] LABS: HEMATOCRIT 35.6 % (42.0-52.0); HEMOGLOBIN 11.6 g/dl (14.0-18.0); MEAN CELL VOLUME 94.7 fl (80.0-94.0); MEAN CORPUSCULAR HGB 30.9 pg (27.0-31.0); MEAN CORPUSCULAR HGB CONC 32.6 g/dl (33.0-37.0); MEAN PLATELET VOLUME 10.8 fl (9.6-12.3); PLATELET COUNT AUTOMATED 171 10*3/uL (130-400); RED BLOOD COUNT 3.76 10*6/uL (4.50-5.90); RED CELL DISTRI WIDTH 12.8 % (0-14.5); WHITE BLOOD COUNT 19.2 10*3/uL (4.8-10.8)
--- NOTE | 2018-12-27 03:52 | NUR ---
DR MARADIAGA AWARE LACTIC ACID 3.0
[2018-12-27 03:54] LABS: MICROCYTOSIS SLIGHT; OVALOCYTES FEW; PLATELET SUFFICIENCY NORMAL (NORMAL); TOTAL CELLS COUNTED 100 #CELLS
[2018-12-27 04:01] LABS: BILIRUBIN NEGATIVE (NEGATIVE); BLOOD 2+ (NEGATIVE); CLARITY SL CLOUDY (CLEAR); COLOR YELLOW (YELLOW); GLUCOSE 3+ (NEGATIVE); KETONE NEGATIVE (NEGATIVE); LEUKO ESTERASE NEGATIVE (NEGATIVE); NITRITE NEGATIVE (NEGATIVE); PH 5.5 (5.0-9.0); SPECIFIC GRAVITY 1.025 (1.005-1.030); UROBILINOGEN 0.2 E.U./dl (0.2-1.0)
[2018-12-27 04:07] LABS: WBC 0-2 wbc/hpf (0-5)
[2018-12-27 04:14] LABS: ALBUMIN 3.6 gm/dl (3.1-4.5); ALKALINE PHOSPHATASE 71 U/L (45-117); BUN 20 mg/dl (7-24); CHLORIDE 103 mmol/L (98-107); CREATININE 1.58 mg/dL (0.70-1.30); POTASSIUM 4.5 mmol/L (3.5-5.1); SGOT/AST 10 IU/L (3-35); SGPT/ALT 14 U/L (12-78); SODIUM 139 mmol/L (136-145); TOTAL PROTEIN 8.4 gm/dL (6.4-8.2)
[2018-12-27 04:15] LABS: TROPONIN I < 0.015 ng/ml (<0.045)
--- NOTE | 2018-12-27 07:25 | NUR ---
REPORT RECEIVED AT 0710 FROM JAYMIE CHU. THIS PT IS NOT VERBALLY RESPONSIVE. RESPIRATIONS ARE MILDLY LABORED. PULSE OX ON NRB MASK AT 15L IS 100% ROMERO CATHETER IS PATENT AND DRAINING EARLENE URINE. IV FLUID IS INFUSING. PT IS ADMITTED TO ICU. REPORT TO BE CALLED. DMITRIY CHU
[2018-12-27 07:45] LABS: CSF RBC 1000 /uL; CSF WBC 9 /uL
[2018-12-27 07:59] LABS: CSF GLUCOSE 232 mg/dL (40-70); CSF TOTAL PROTEIN 113.9 mg/dL (15-45)
[2018-12-27 08:26] LABS: CSF LYMPHOCYTES 15 % (40-80); CSF MONOCYTES 5 % (15-45)
[2018-12-27 08:29] LABS: CLARITY CLEAR; COLOR COLORLESS
[2018-12-27] MEDS ORDERED: IBUPROFEN600 MG PO (11:09)
[2018-12-27] MEDS ORDERED: KEFLEX500 M1 PO (11:14)
[2018-12-27] MEDS ORDERED: VITAMIN D32000 UNI1 PO (11:18)
[2018-12-27] MEDS ORDERED: ADMELOG100 UNIT/1 SQ (11:24)
[2018-12-27] MEDS ORDERED: ATIVAN2 MG/1 ML IM (11:27)
[2018-12-27] MEDS ORDERED: ATIVAN1 MG PO (11:28)
[2018-12-27] MEDS ORDERED: CALAMINE LOTIO177 M2 T (11:34)
[2018-12-27] MEDS ORDERED: SILVADENE,SSD C50 GM T (11:48)
[2018-12-27] MEDS ORDERED: TAMSULOSIN HCL0.4 MG PO (11:48)
--- NOTE | 2018-12-27 11:57 | NUR ---
Patient comes from [facility], he is a salvage determiner resident and ok to return when medically stable for discharge.
--- NOTE | 2018-12-27 14:30 | NUR ---
BATHING PATIENT. POSTURING NOTED TO HANDS AND FEET. DR. WHEELER AND DR. DODGE HERE IN ROOM. MEDICATED WITH ATIVAN 2MG IV ORDERED FOR SEIZURE ACTIVITY THAT LASTED APPROXIMATELY 3 MINS.
--- NOTE | 2018-12-27 15:40 | NUR ---
TAKEN DOWN TO CT FOR CT SCAN OF RIGHT THIGH. THIGH IS RED, SWOLLEN, AND WARM TO TOUCH.
--- NOTE | 2018-12-27 17:57 | NUR ---
REMAINS MINIMALLY RESPONSIVE TO PAIN. MOANS WITH ANY MOVEMENT. TEMP 100.7
[2018-12-28] VITALS: BP 126/68
--- NOTE | 2018-12-28 00:05 | NUR ---
MEDICATED WITH TYLENOL PER PRN ORDER FOR T 101.7.
--- NOTE | 2018-12-28 01:20 | NUR ---
MEDICATED WITH NORCO PER PRN ORDER FOR C/O PAIN.
--- NOTE | 2018-12-28 02:15 | NUR ---
T 102.0. DR RANKIN NOTIFIED.
[2018-12-28 04:00] VITALS: BP 108/54
--- NOTE | 2018-12-28 04:07 | NUR ---
TYLENOL, NORCO, AND MOTRIN EFFECTIVE.
[2018-12-28 05:45] LABS: ALBUMIN 2.6 gm/dl (3.1-4.5); ALKALINE PHOSPHATASE 44 U/L (45-117); BUN 20 mg/dl (7-24); CHLORIDE 111 mmol/L (98-107); CREATININE 1.24 mg/dL (0.70-1.30); PHOSPHOROUS 2.2 mg/dL (2.5-4.9); POTASSIUM 3.9 mmol/L (3.5-5.1); SGOT/AST 22 IU/L (3-35); SGPT/ALT 14 U/L (12-78); SODIUM 145 mmol/L (136-145); TOTAL PROTEIN 6.6 gm/dL (6.4-8.2)
[2018-12-28 06:08] LABS: BASO % 0.1 % (0.0-1.0); LYMPH # 1.4 10*3/uL (1.3-4.4); LYMPH % 10.2 % (27.0-41.0); MEAN CELL VOLUME 96.7 fl (80.0-94.0); MEAN CORPUSCULAR HGB 30.5 pg (27.0-31.0); MEAN CORPUSCULAR HGB CONC 31.5 g/dl (33.0-37.0); MEAN PLATELET VOLUME 10.9 fl (9.6-12.3); MONO # 0.5 10*3/uL (0.1-1.0); MONO % 3.5 % (3.0-9.0); NEUT # 11.6 10*3/uL (2.3-7.9); NEUT % 85.5 % (47.0-73.0); PLATELET COUNT AUTOMATED 128 10*3/uL (130-400); RED BLOOD COUNT 3.02 10*6/uL (4.50-5.90); RED CELL DISTRI WIDTH 13.1 % (0-14.5); WHITE BLOOD COUNT 13.6 10*3/uL (4.8-10.8)
[2018-12-28 06:09] LABS: HEMATOCRIT 29.2 % (42.0-52.0); HEMOGLOBIN 9.2 g/dl (14.0-18.0)
[2018-12-28 08:00] VITALS: BP 104/56
--- NOTE | 2018-12-28 09:00 | NUR ---
Territory Account Representative in to see patient. He is a LTC resident at [facility]. When medically stable he will be discharged to [facility]. data recovery planner following.
[2018-12-28 12:00] VITALS: BP 124/61
[2018-12-28 14:40] LABS: ALBUMIN 2.5 gm/dl (3.1-4.5); BUN 19 mg/dl (7-24); CHLORIDE 112 mmol/L (98-107); CREATININE 1.38 mg/dL (0.70-1.30); SGOT/AST 36 IU/L (3-35); SGPT/ALT 17 U/L (12-78); SODIUM 143 mmol/L (136-145); TOTAL PROTEIN 6.8 gm/dL (6.4-8.2)
[2018-12-28 14:41] LABS: POTASSIUM 5.1 mmol/L (3.5-5.1)
[2018-12-28 14:44] LABS: ALKALINE PHOSPHATASE 56 U/L (45-117)
--- NOTE | 2018-12-28 14:55 | NUR ---
MEDICATED WITH 2 TYLENOL FOR TEMP 101.2
[2018-12-28 16:00] VITALS: BP 111/49; BP 135/70
--- NOTE | 2018-12-28 18:45 | NUR ---
TRANSFERRED TO ROOM 428 VIA BED. REPORT GIVEN TO SUZANNA CHU
[2018-12-28 20:00] VITALS: BP 145/68
[2018-12-28 21:10] LABS: HSV-2 DNA Negative (Negative)
[2018-12-29] VITALS: BP 144/68
[2018-12-29 06:13] LABS: ADENOVIRUS Negative (Negative); INFLUENZA A Negative (Negative); INFLUENZA B Negative (Negative); METAPNEUMOVIRUS Negative (Negative); PARAINFLUENZA 1 Negative (Negative); PARAINFLUENZA 2 Negative (Negative); PARAINFLUENZA 3 Negative (Negative); RHINOVIRUS Negative (Negative); RSV A Negative (Negative); RSV B Negative (Negative)
[2018-12-29 06:58] LABS: BASO % 0.2 % (0.0-1.0); EOS # 0.1 10*3/uL (0.0-0.4); EOS % 0.6 % (1.0-4.0); HEMATOCRIT 28.8 % (42.0-52.0); HEMOGLOBIN 9.4 g/dl (14.0-18.0); LYMPH # 2.2 10*3/uL (1.3-4.4); MEAN CORPUSCULAR HGB CONC 32.6 g/dl (33.0-37.0); MEAN PLATELET VOLUME 10.3 fl (9.6-12.3); MONO # 0.7 10*3/uL (0.1-1.0); MONO % 6.9 % (3.0-9.0); NEUT # 6.5 10*3/uL (2.3-7.9); NEUT % 68.9 % (47.0-73.0); PLATELET COUNT AUTOMATED 116 10*3/uL (130-400); RED BLOOD COUNT 3.03 10*6/uL (4.50-5.90); WHITE BLOOD COUNT 9.5 10*3/uL (4.8-10.8)
[2018-12-29 07:18] LABS: PHOSPHOROUS 2.3 mg/dL (2.5-4.9)
[2018-12-29 08:00] VITALS: BP 130/55
--- NOTE | 2018-12-29 08:52 | NUR ---
Patient clincal updates faxed to [facility] for review. Patient is shelter care and can return when medically stable for discharge.
--- NOTE | 2018-12-29 09:00 | NUR ---
Office Bookkeeper in to see patient. He is a LTC resident at [facility]. When medically stable he will be discharged to [facility]. conservation planner following.
[2018-12-29 12:00] VITALS: BP 127/55
--- NOTE | 2018-12-29 15:44 | NUR ---
ELVIA SHI [id number] Please refer to the physician's history and physical for past medical history, comorbid conditions, and allergies. Diagnosis: METABOLIC ENCEPHALOPATHY SEVERE SEPSIS Manny Score: 12,HIGH RISK WOUND DESCRIPTIONS: Location of the wound: RIGHT BUTTOCK Type of wound: STAGE 2 Thickness: Partial Size: 2.9cm X 0.8cm X 0.1cm Tunneling: NONE Undermining: NONE Sinus Tract: NONE Presence of Exudate: Serous Amount: Light Color: Red Odor: None Periwound Skin Appearance: Normal Wound edges: APPROXIMATED Pain (associated with wound): DENIED AT TIME OF ASSESSMENT How does patient state this happened? PATIENT UNSURE HOW THIS HAPPENED. Location of the wound: LEFT PROXIMAL BUTTOCK Type of wound: STAGE 2 Thickness: Partial Size: 4.0cm X 1.0cm X 0.1cm Tunneling: NONE Undermining: NONE Sinus Tract: NONE Presence of Exudate: Serous Amount: Light Color: Red Odor: None Periwound Skin Appearance: Normal Wound edges: APPROXIMATED Pain (associated with wound): DENIED AT TIME OF ASSESSMENT How does patient state this happened? PATIENT UNSURE HOW THIS HAPPENED. Location of the wound: LEFT DITAL BUTTOCK Type of wound: STAGE 2 Thickness: Partial Size: 4.0cm X 0.8cm X 0.1cm Tunneling: NONE Undermining: NONE Sinus Tract: NONE Presence of Exudate: Serous Amount: Light Color: Red Odor: None Periwound Skin Appearance: Normal Wound edges: APPROXIMATED Pain (associated with wound): DENIED AT TIME OF ASSESSMENT How does patient state this happened? PATIENT UNSURE HOW THIS HAPPENED. Surface the patient is resting on: Position Pro SKIN PREVENTION RECOMMENDATION: 1. Pressure redistribution support surface as appropriate 2. Elevate heels 3. Remove boots/TEDS every shift and reapply 4. Head of bed 30 degrees as tolerated 5. Assess nutrition and hydration 6. Manage moisture 7. Avoid the use of containment devices while in bed 8. Use absorptive products on surfaces limit layers of linens on bed 9. Turn and reposition every 1-2 hours in bed and every 1 hour in chair as tolerated 10. Weight shifts every 15 minutes while up in chair 11. Offloading with pillows or device to keep heels elevated off bed 12. Monitor skin at least every shift 13. Inspect under medical devices twice a day WOUND TREATMENT RECOMMENDATIONS: CONTINUE CURRENT ORDERS.
--- NOTE | 2018-12-29 16:36 | NUR ---
Recommend follow up for wound care in outpatient setting patient being discharge to another facility at this time.
--- NOTE | 2018-12-29 17:45 | NUR ---
SPOKE WITH POWER OF GUEST RELATIONS COORDINATOR AND UPDATED REGARDING CONDITION
[2018-12-29 20:00] VITALS: BP 136/52
[2018-12-30] VITALS: BP 123/50
[2018-12-30 06:19] LABS: BASO % 0.3 % (0.0-1.0); EOS # 0.1 10*3/uL (0.0-0.4); HEMATOCRIT 27.7 % (42.0-52.0); HEMOGLOBIN 8.8 g/dl (14.0-18.0); LYMPH # 2.2 10*3/uL (1.3-4.4); LYMPH % 36.1 % (27.0-41.0); MEAN CELL VOLUME 95.5 fl (80.0-94.0); MEAN CORPUSCULAR HGB 30.3 pg (27.0-31.0); MEAN CORPUSCULAR HGB CONC 31.8 g/dl (33.0-37.0); MEAN PLATELET VOLUME 11.1 fl (9.6-12.3); MONO # 0.6 10*3/uL (0.1-1.0); MONO % 9.4 % (3.0-9.0); NEUT # 3.2 10*3/uL (2.3-7.9); NEUT % 51.5 % (47.0-73.0); PLATELET COUNT AUTOMATED 126 10*3/uL (130-400); RED CELL DISTRI WIDTH 13.1 % (0-14.5); WHITE BLOOD COUNT 6.2 10*3/uL (4.8-10.8)
[2018-12-30 06:28] LABS: BUN 12 mg/dl (7-24); CHLORIDE 115 mmol/L (98-107); CREATININE 1.15 mg/dL (0.70-1.30)
[2018-12-30 06:48] LABS: SODIUM 144 mmol/L (136-145)
[2018-12-30 08:00] VITALS: BP 140/70
[2018-12-30 10:09] LABS: CSF CRYPTOCOCCUS AG Negative (Negative)
[2018-12-30 12:00] VITALS: BP 142/63
--- NOTE | 2018-12-30 14:28 | NUR ---
ROMERO D/C, PT TOLERATED FAIR.
[2018-12-30 16:00] VITALS: BP 155/74
[2018-12-30 20:00] VITALS: BP 151/66
[2018-12-31] VITALS: BP 139/61
--- NOTE | 2018-12-31 00:30 | NUR ---
DRESSING CHANGE DONE TO PATIENTS WOUND TO COCCYX AREA.
[2018-12-31 07:48] LABS: BASO % 0.4 % (0.0-1.0); EOS # 0.2 10*3/uL (0.0-0.4); EOS % 3.2 % (1.0-4.0); HEMATOCRIT 28.8 % (42.0-52.0); HEMOGLOBIN 9.5 g/dl (14.0-18.0); LYMPH # 2.3 10*3/uL (1.3-4.4); LYMPH % 40.9 % (27.0-41.0); MEAN CELL VOLUME 94.1 fl (80.0-94.0); MEAN PLATELET VOLUME 10.5 fl (9.6-12.3); MONO # 0.5 10*3/uL (0.1-1.0); MONO % 8.6 % (3.0-9.0); NEUT # 2.6 10*3/uL (2.3-7.9); NEUT % 45.6 % (47.0-73.0); PLATELET COUNT AUTOMATED 152 10*3/uL (130-400); RED BLOOD COUNT 3.06 10*6/uL (4.50-5.90); RED CELL DISTRI WIDTH 13.1 % (0-14.5); WHITE BLOOD COUNT 5.6 10*3/uL (4.8-10.8)
[2018-12-31 08:00] VITALS: BP 149/53
[2018-12-31 08:06] LABS: BUN 9 mg/dl (7-24); CHLORIDE 112 mmol/L (98-107); CREATININE 1.18 mg/dL (0.70-1.30); POTASSIUM 4.2 mmol/L (3.5-5.1); SODIUM 143 mmol/L (136-145)
[2018-12-31 12:00] VITALS: BP 152/56
[2018-12-31] MEDS ORDERED: NEURONTIN600 MG PO (12:22)
[2018-12-31] MEDS ORDERED: CLINDAMYCIN HC300 MG PO (12:22)
[2018-12-31] MEDS ORDERED: ATIVAN2 MG/1 ML IM (12:22)
[2018-12-31] MEDS ORDERED: HYDROCODONE-AC1 EAC1 PO (12:22)
[2018-12-31] MEDS ORDERED: CEFTRIAXONE1 GM IV ×2 (12:22→12:25)
[2018-12-31] MEDS ORDERED: ATIVAN1 MG PO (12:22)
[2018-12-31] MEDS ORDERED: METHADONE HCL10 MG PO (12:22)
--- NOTE | 2018-12-31 14:10 | NUR ---
REPORT CALLED TO [place] [facility]
--- NOTE | 2018-12-31 15:28 | NUR ---
discharge photos done pt refused to sign discharge papers. copy of papers sent with patiet to [facility]. iv right arm removed, pt sent to [facility] with picc line.
--- NOTE | 2018-12-31 15:41 | NUR ---
AMBULANCE HERE TO SUPERVISOR BOILERMAKING SHOP PATIENT
== END 2018-12-31 15:41 | DRG 871 ==
LOC: ED 03:06 → EDHOLD 07:17 → ICCU 07:17 → 4E 07:17 → ICCU 07:23 → 4E 12-28 17:18
PROVIDERS: Internal Medicine; Student in an Organized Health Care Education/Training Program; ADMIT Internal Medicine
PROC: 009U3ZX Drainage of Spinal Canal, Percutaneous Approach, Diagnostic (ICD-10-PCS; principal; 2018-12-27)
PROC: 02HV33Z Insertion of Infusion Device into Superior Vena Cava, Percutaneous Approach (ICD-10-PCS; 2018-12-30)
DX: A40.1 Sepsis due to streptococcus, group B (principal); G93.41 Metabolic encephalopathy; N17.0 Acute kidney failure with tubular necrosis; G03.9 Meningitis, unspecified; N12 Tubulo-interstitial nephritis, not specified as acute or chronic; E87.2 Acidosis; F20.0 Paranoid schizophrenia; R65.20 Severe sepsis without septic shock; D72.829 Elevated white blood cell count, unspecified; D53.9 Nutritional anemia, unspecified; J44.9 Chronic obstructive pulmonary disease, unspecified; E11.42 Type 2 diabetes mellitus with diabetic polyneuropathy; H40.9 Unspecified glaucoma; K76.0 Fatty (change of) liver, not elsewhere classified; E55.9 Vitamin D deficiency, unspecified; G89.29 Other chronic pain; G40.909 Epilepsy, unspecified, not intractable, without status epilepticus; F41.9 Anxiety disorder, unspecified; N40.1 Benign prostatic hyperplasia with lower urinary tract symptoms; E66.9 Obesity, unspecified; Z79.899 Other long term (current) drug therapy; Z79.4 Long term (current) use of insulin; Z79.82 Long term (current) use of aspirin; Z68.35 Body mass index [BMI] 35.0-35.9, adult

== ENCOUNTER 2019-01-16 07:34 | Emergency (ER) | payer MEDICARE ==
[~2019-01-16 07:34] MED LIST changes: +ADMELOG100 UNIT/1 SQ; -ARTIFICIAL TEAR30 M4 IO; +ARTIFICIAL TEAR30 M4 OU; +CALAMINE LOTIO177 M2 T; +CEFTRIAXONE1 GM IV; +CLINDAMYCIN HC300 MG PO; +HYDROCODONE-AC1 EAC1 PO; +IBUPROFEN600 MG PO; +KEFLEX500 M1 PO; +PEPCID40 MG PO; +SILVADENE,SSD C50 GM T; +TAMSULOSIN HCL0.4 MG PO; +VITAMIN D32000 UNI1 PO
[2019-01-16 07:35] VITALS: BP 134/66
[2019-05-01] MEDS ORDERED: ZYLOPRIM100 MG PO (20:13)
[2019-05-01] MEDS ORDERED: HUMALOG100 UNIT/2 SQ (20:18)
[2019-05-01] MEDS ORDERED: Ipratropium Brom3 ML INH (20:19)
[2019-05-01] MEDS ORDERED: LANTUS SOL100 UNIT/1 SQ (20:20)
[2019-05-01] MEDS ORDERED: METHADONE HCL10 MG PO (20:22)
[2019-05-01] MEDS ORDERED: NEURONTIN300 MG PO (20:24)
[2019-05-04] MEDS ORDERED: CEPHALEXIN500 M1 PO (12:04)
[2019-05-04] MEDS ORDERED: ATIVAN1 MG PO (12:04)
[2019-05-04] MEDS ORDERED: ATIVAN2 MG/1 ML IM (12:04)
[2019-05-04] MEDS ORDERED: METHADONE HCL10 MG PO (12:18)
[2019-05-04] MEDS ORDERED: NEURONTIN300 MG PO (12:19)
== END 2019-01-16 09:51 | disposition home or self-care (01) ==
LOC: ED 07:34
DX: S39.92XA Unspecified injury of lower back, initial encounter (principal); R51 Headache; R07.81 Pleurodynia; G40.909 Epilepsy, unspecified, not intractable, without status epilepticus; J44.9 Chronic obstructive pulmonary disease, unspecified; E11.42 Type 2 diabetes mellitus with diabetic polyneuropathy; F79 Unspecified intellectual disabilities; W18.39XA Other fall on same level, initial encounter; Y93.89 Activity, other specified; Y92.128 Other place in nursing home as the place of occurrence of the external cause; Y99.8 Other external cause status

== ENCOUNTER 2019-01-24 23:57 | Inpatient (IN) | payer MEDICARE ==
[~2019-01-24] VITALS: Ht 177.8 cm; Wt 107.1 kg
--- NOTE | ~2019-01-24 | PR ---
[place], [place] PROGRESS NOTE [id number] UNIT #: [id number] ROOM: 523 DOCTOR: CHI VITALEFEBRUARY BIRTHDATE: [birth year] DOS: 01/27/2019 SUBJECTIVE: The patient is a 68-year-old -Malian male who is being followed for leukocytosis. There was concern for meningitis early on and he was diagnosed with metabolic encephalopathy. He is currently on no antibiotics. His WBCs continue to improve. Urine culture has 25,000 colonies of ESBL E. coli. Blood cultures are sterile. His influenza was negative. MRSA screen is positive. He has had no fevers. States he is feeling okay. Denies any pain. Denies shortness of breath. No nausea or vomiting. States he thinks he has his first episode of diarrhea currently. Otherwise, he feels well. LABORATORY DATA: Cultures as reviewed above. WBCs 13.6, platelets 219. BUN 22, creatinine 1.03. LFTs within normal limits. Albumin 2.7. PHYSICAL EXAMINATION: VITAL SIGNS: Temperature 98.2, pulse 62, respirations 18, BP 110/52. GENERAL: A 68-year-old -Malian male in no acute distress. HEENT: Normocephalic, no thrush. Missing multiple teeth. NECK: Supple. LUNGS: Clear to auscultation bilaterally. Respirations even and unlabored. HEART: Regular rhythm. No murmur appreciated. ABDOMEN: Soft. He has some mild right upper quadrant tenderness to palpation. Positive bowel sounds. EXTREMITIES: No edema. SKIN: Warm, dry, free of rashes. ASSESSMENT: Leukocytosis, which is improving. No signs of meningitis. PLAN: I will continue to follow the patient, no antibiotics currently. I agree with the assessment and plan made by the nurse practitioner, Leonor Mireles. I reviewed the labs and imaging and made the necessary changes in the note. LEONOR MIRELES CNP [place], [place] PROGRESS NOTE NAME: ELVIA SHI UNIT #: [id number] ROOM: 523 DOCTOR: CHI VITALEFEBRUARY BIRTHDATE: [birth year] Theresa Remy MD CM:PNDU [id number] FEBRUARY [facility] 02/10/19 0743 interface
--- NOTE | ~2019-01-24 | PR ---
[place], [place] PROGRESS NOTE NAME: ELVIA SHI UNIT #: [id number] ROOM: 523 DOCTOR: KLAUS DAWKINS,RICA BIRTHDATE: [birth year] DOS: 01/27/2019 ADDENDUM This is addendum to the progress note done by the nurse practitioner, Leonor Stephens on the patient on 01/27/2019. I agree with the assessment and plan made by the nurse practitioner, Leonor Stephens. I reviewed the labs and imaging and made the necessary changes in the note. Rica Enrique MD CM:PNTRANS [id number] RICA ENRIQUE MD 02/10/19 0743 interface
--- NOTE | ~2019-01-24 | EKG ---
[place], [place] ELECTROCARDIOGRAM REPORT NAME: ELVIA SHI UNIT #: [id number] ROOM: 523 DOCTOR: DURGA DRAFT REPORT BIRTHDATE: [birth year] [facility] Test Date: 2019-01-25 Test Time: 00:15:23 Pat Name: ELVIA SHI Department: Room: 523 Gender: M Break Out Worker: Sherie Neves : 1950 Requested By: NARCISO MARADIAGA Order Number: [id number] Reading MD: Delbert Stephens MD Measurements Intervals [place] Rate: 90 P: 46 CA: 166 QRS: -32 QRSD: 86 T: 28 QT: 339 QTc: 415 Interpretive Statements Sinus rhythm Left axis deviation Compared to ECG 12/27/2018 03:24:06 Left-axis deviation now present Sinus tachycardia no longer present Left ventricular hypertrophy no longer present T-wave abnormality no longer present Electronically Signed On 01-26-2019 9:48:50 PST by Delbert Stephens MD CM:EKGRPT:ELECTROCARDIOGRAM REPORT 0015 0948 NARCISO YOON DRAFT REPORT NARCISO MARADIAGA DO
[2019-01-24 23:58] VITALS: BP 128/52
[2019-01-25] VITALS (7 sets, daily range): BP systolic 109–159; BP diastolic 50–72
[2019-01-25 00:32] LABS: BASO % 0.2 % (0.0-1.0); EOS % 0.1 % (1.0-4.0); HEMATOCRIT 33.7 % (42.0-52.0); HEMOGLOBIN 10.6 g/dl (14.0-18.0); LYMPH # 1.3 10*3/uL (1.3-4.4); LYMPH % 6.5 % (27.0-41.0); MEAN CELL VOLUME 96.3 fl (80.0-94.0); MEAN CORPUSCULAR HGB 30.3 pg (27.0-31.0); MEAN CORPUSCULAR HGB CONC 31.5 g/dl (33.0-37.0); MEAN PLATELET VOLUME 10.1 fl (9.6-12.3); MONO # 0.8 10*3/uL (0.1-1.0); MONO % 3.9 % (3.0-9.0); NEUT # 17.6 10*3/uL (2.3-7.9); NEUT % 88.7 % (47.0-73.0); NUCLEATED RED BLOOD CELL 0.1 % (0.0-0.0); PLATELET COUNT AUTOMATED 191 10*3/uL (130-400); RED CELL DISTRI WIDTH 13.6 % (0-14.5); WHITE BLOOD COUNT 19.9 10*3/uL (4.8-10.8)
[2019-01-25 00:42] LABS: ACT PARTIAL THROMBO TIME 23.8 SECONDS (20.8-31.5)
[2019-01-25 00:56] LABS: ALKALINE PHOSPHATASE 51 U/L (45-117); BUN 11 mg/dl (7-24); CHLORIDE 106 mmol/L (98-107); CREATININE 1.19 mg/dL (0.70-1.30); POTASSIUM 4.7 mmol/L (3.5-5.1); SGOT/AST 12 IU/L (3-35); SGPT/ALT 15 U/L (12-78); SODIUM 143 mmol/L (136-145); TOTAL PROTEIN 7.7 gm/dL (6.4-8.2)
[2019-01-25 01:15] LABS: BILIRUBIN NEGATIVE (NEGATIVE); BLOOD 1+ (NEGATIVE); CLARITY SL CLOUDY (CLEAR); COLOR YELLOW (YELLOW); GLUCOSE NEGATIVE (NEGATIVE); KETONE NEGATIVE (NEGATIVE); LEUKO ESTERASE NEGATIVE (NEGATIVE); NITRITE NEGATIVE (NEGATIVE); PH 5.5 (5.0-9.0); SPECIFIC GRAVITY >= 1.030 (1.005-1.030); UROBILINOGEN 0.2 E.U./dl (0.2-1.0)
[2019-01-25 01:28] LABS: EPITHELIAL CELLS 45-50
[2019-01-25 01:29] LABS: WBC 0-2 wbc/hpf (0-5)
[2019-01-25] MEDS ORDERED: METHADONE HCL10 MG PO (05:28)
[2019-01-25 06:59] LABS: HEMATOCRIT 32.5 % (42.0-52.0); HEMOGLOBIN 10.1 g/dl (14.0-18.0); MEAN CELL VOLUME 96.7 fl (80.0-94.0); MEAN CORPUSCULAR HGB 30.1 pg (27.0-31.0); MEAN CORPUSCULAR HGB CONC 31.1 g/dl (33.0-37.0); MEAN PLATELET VOLUME 10.5 fl (9.6-12.3); PLATELET COUNT AUTOMATED 192 10*3/uL (130-400); RED BLOOD COUNT 3.36 10*6/uL (4.50-5.90); RED CELL DISTRI WIDTH 13.5 % (0-14.5)
[2019-01-25 07:24] LABS: ALBUMIN 2.9 gm/dl (3.1-4.5); BUN 13 mg/dl (7-24); CHLORIDE 106 mmol/L (98-107); POTASSIUM 4.7 mmol/L (3.5-5.1); SGOT/AST 14 IU/L (3-35); SGPT/ALT 15 U/L (12-78); SODIUM 142 mmol/L (136-145)
[2019-01-25 07:31] LABS: ALKALINE PHOSPHATASE 49 U/L (45-117); CREATININE 1.07 mg/dL (0.70-1.30); FREE T4 1.25 ng/dl (0.76-1.46); PHOSPHOROUS 3.9 mg/dL (2.5-4.9); TOTAL PROTEIN 7.5 gm/dL (6.4-8.2)
[2019-01-25 07:50] LABS: TOTAL CELLS COUNTED 100 #CELLS
[2019-01-25 07:51] LABS: PLATELET SUFFICIENCY NORMAL (NORMAL)
[2019-01-26] VITALS: BP 157/64
[2019-01-26 06:23] LABS: BASO % 0.1 % (0.0-1.0); HEMOGLOBIN 9.5 g/dl (14.0-18.0); LYMPH # 1.8 10*3/uL (1.3-4.4); LYMPH % 11.5 % (27.0-41.0); MEAN CELL VOLUME 94.9 fl (80.0-94.0); MEAN CORPUSCULAR HGB 30.1 pg (27.0-31.0); MEAN CORPUSCULAR HGB CONC 31.7 g/dl (33.0-37.0); MEAN PLATELET VOLUME 10.2 fl (9.6-12.3); MONO % 6.6 % (3.0-9.0); NEUT # 12.7 10*3/uL (2.3-7.9); NUCLEATED RED BLOOD CELL 0.1 % (0.0-0.0); PLATELET COUNT AUTOMATED 186 10*3/uL (130-400); RED BLOOD COUNT 3.16 10*6/uL (4.50-5.90); RED CELL DISTRI WIDTH 13.2 % (0-14.5); WHITE BLOOD COUNT 15.7 10*3/uL (4.8-10.8)
[2019-01-26 06:49] LABS: ALBUMIN 2.5 gm/dl (3.1-4.5); ALKALINE PHOSPHATASE 50 U/L (45-117); BUN 19 mg/dl (7-24); CHLORIDE 107 mmol/L (98-107); CREATININE 1.15 mg/dL (0.70-1.30); POTASSIUM 4.5 mmol/L (3.5-5.1); SGOT/AST 10 IU/L (3-35); SGPT/ALT 10 U/L (12-78); SODIUM 141 mmol/L (136-145); TOTAL PROTEIN 7.2 gm/dL (6.4-8.2)
[2019-01-26 08:00] VITALS: BP 138/58
[2019-01-26 16:00] VITALS: BP 124/54
[2019-01-26 20:00] VITALS: BP 126/56
[2019-01-27] VITALS: BP 132/69
[2019-01-27 08:00] VITALS: BP 94/78
[2019-01-27 09:17] LABS: BASO % 0.1 % (0.0-1.0); EOS % 0.2 % (1.0-4.0); HEMATOCRIT 31.6 % (42.0-52.0); HEMOGLOBIN 10.2 g/dl (14.0-18.0); LYMPH # 4.4 10*3/uL (1.3-4.4); LYMPH % 32.2 % (27.0-41.0); MEAN CELL VOLUME 95.5 fl (80.0-94.0); MEAN CORPUSCULAR HGB 30.8 pg (27.0-31.0); MEAN CORPUSCULAR HGB CONC 32.3 g/dl (33.0-37.0); MEAN PLATELET VOLUME 9.9 fl (9.6-12.3); MONO # 0.8 10*3/uL (0.1-1.0); MONO % 5.9 % (3.0-9.0); NEUT # 8.3 10*3/uL (2.3-7.9); NEUT % 61.2 % (47.0-73.0); NUCLEATED RED BLOOD CELL 0.1 % (0.0-0.0); PLATELET COUNT AUTOMATED 219 10*3/uL (130-400); RED BLOOD COUNT 3.31 10*6/uL (4.50-5.90); RED CELL DISTRI WIDTH 13.3 % (0-14.5); WHITE BLOOD COUNT 13.6 10*3/uL (4.8-10.8)
[2019-01-27 09:49] LABS: ALBUMIN 2.7 gm/dl (3.1-4.5); ALKALINE PHOSPHATASE 46 U/L (45-117); BUN 22 mg/dl (7-24); CHLORIDE 106 mmol/L (98-107); CREATININE 1.03 mg/dL (0.70-1.30); POTASSIUM 3.7 mmol/L (3.5-5.1); SGOT/AST 15 IU/L (3-35); SGPT/ALT 16 U/L (12-78); SODIUM 143 mmol/L (136-145); TOTAL PROTEIN 7.2 gm/dL (6.4-8.2)
[2019-01-27 09:53] VITALS: BP 142/62
[2019-01-27 12:00] VITALS: BP 130/64
[2019-01-27 16:00] VITALS: BP 110/52
[2019-01-27 20:00] VITALS: BP 137/56
[2019-01-28] VITALS: BP 151/62
[2019-01-28 06:44] LABS: BASO % 0.3 % (0.0-1.0); EOS # 0.1 10*3/uL (0.0-0.4); EOS % 0.8 % (1.0-4.0); HEMATOCRIT 30.3 % (42.0-52.0); HEMOGLOBIN 9.6 g/dl (14.0-18.0); LYMPH # 3.8 10*3/uL (1.3-4.4); LYMPH % 32.3 % (27.0-41.0); MEAN CELL VOLUME 96.2 fl (80.0-94.0); MEAN CORPUSCULAR HGB 30.5 pg (27.0-31.0); MEAN CORPUSCULAR HGB CONC 31.7 g/dl (33.0-37.0); MEAN PLATELET VOLUME 10.1 fl (9.6-12.3); MONO # 1.1 10*3/uL (0.1-1.0); MONO % 9.4 % (3.0-9.0); NEUT # 6.7 10*3/uL (2.3-7.9); NEUT % 56.7 % (47.0-73.0); PLATELET COUNT AUTOMATED 221 10*3/uL (130-400); RED BLOOD COUNT 3.15 10*6/uL (4.50-5.90); RED CELL DISTRI WIDTH 13.2 % (0-14.5); WHITE BLOOD COUNT 11.8 10*3/uL (4.8-10.8)
[2019-01-28 07:08] LABS: ALBUMIN 2.6 gm/dl (3.1-4.5); ALKALINE PHOSPHATASE 43 U/L (45-117); BUN 18 mg/dl (7-24); CHLORIDE 107 mmol/L (98-107); CREATININE 0.95 mg/dL (0.70-1.30); PHOSPHOROUS 4.1 mg/dL (2.5-4.9); SGOT/AST 13 IU/L (3-35); SGPT/ALT 15 U/L (12-78); SODIUM 143 mmol/L (136-145); TOTAL PROTEIN 6.8 gm/dL (6.4-8.2)
[2019-01-28 08:00] VITALS: BP 149/68
[2019-01-28 12:00] VITALS: BP 132/80
[2019-01-28 16:00] VITALS: BP 142/87
[2019-01-28 20:00] VITALS: BP 162/71
[2019-01-29] VITALS: BP 156/63
[2019-01-29 06:26] LABS: BASO % 0.2 % (0.0-1.0); EOS # 0.1 10*3/uL (0.0-0.4); EOS % 1.6 % (1.0-4.0); HEMATOCRIT 30.5 % (42.0-52.0); HEMOGLOBIN 9.8 g/dl (14.0-18.0); LYMPH # 2.6 10*3/uL (1.3-4.4); LYMPH % 31.9 % (27.0-41.0); MEAN CORPUSCULAR HGB 30.5 pg (27.0-31.0); MEAN CORPUSCULAR HGB CONC 32.1 g/dl (33.0-37.0); MEAN PLATELET VOLUME 9.5 fl (9.6-12.3); MONO # 0.6 10*3/uL (0.1-1.0); MONO % 7.8 % (3.0-9.0); NEUT # 4.7 10*3/uL (2.3-7.9); NEUT % 57.2 % (47.0-73.0); PLATELET COUNT AUTOMATED 217 10*3/uL (130-400); RED BLOOD COUNT 3.21 10*6/uL (4.50-5.90); RED CELL DISTRI WIDTH 13.1 % (0-14.5); WHITE BLOOD COUNT 8.3 10*3/uL (4.8-10.8)
[2019-01-29 06:55] LABS: ALBUMIN 2.5 gm/dl (3.1-4.5); ALKALINE PHOSPHATASE 54 U/L (45-117); BUN 18 mg/dl (7-24); CHLORIDE 105 mmol/L (98-107); CREATININE 1.05 mg/dL (0.70-1.30); PHOSPHOROUS 3.8 mg/dL (2.5-4.9); POTASSIUM 4.2 mmol/L (3.5-5.1); SGOT/AST 8 IU/L (3-35); SGPT/ALT 14 U/L (12-78); SODIUM 142 mmol/L (136-145); TOTAL PROTEIN 7.1 gm/dL (6.4-8.2)
[2019-01-29 08:00] VITALS: BP 120/52
[2019-01-29 12:00] VITALS: BP 158/72
[2019-01-29 16:00] VITALS: BP 111/40
[2019-01-29 20:00] VITALS: BP 157/70
[2019-01-30] VITALS: BP 158/68
[2019-01-30 06:44] LABS: BASO % 0.3 % (0.0-1.0); EOS # 0.1 10*3/uL (0.0-0.4); EOS % 1.2 % (1.0-4.0); HEMATOCRIT 32.8 % (42.0-52.0); HEMOGLOBIN 10.3 g/dl (14.0-18.0); LYMPH # 2.4 10*3/uL (1.3-4.4); LYMPH % 26.4 % (27.0-41.0); MEAN CELL VOLUME 94.5 fl (80.0-94.0); MEAN CORPUSCULAR HGB 29.7 pg (27.0-31.0); MEAN CORPUSCULAR HGB CONC 31.4 g/dl (33.0-37.0); MEAN PLATELET VOLUME 9.4 fl (9.6-12.3); MONO # 0.6 10*3/uL (0.1-1.0); MONO % 7.1 % (3.0-9.0); NEUT # 5.8 10*3/uL (2.3-7.9); NEUT % 63.7 % (47.0-73.0); PLATELET COUNT AUTOMATED 215 10*3/uL (130-400); RED BLOOD COUNT 3.47 10*6/uL (4.50-5.90); RED CELL DISTRI WIDTH 13.1 % (0-14.5); WHITE BLOOD COUNT 9.1 10*3/uL (4.8-10.8)
[2019-01-30 07:24] LABS: BUN 15 mg/dl (7-24); CHLORIDE 101 mmol/L (98-107); SODIUM 138 mmol/L (136-145)
[2019-01-30 07:30] LABS: CREATININE 1.09 mg/dL (0.70-1.30)
[2019-01-30 12:00] VITALS: BP 136/59
[2019-01-30] MEDS ORDERED: Lantus SC (12:24)
[2019-01-30] MEDS ORDERED: METHADONE HCL10 MG PO (12:24)
[2019-01-30] MEDS ORDERED: KEPPRA500 MG PO (12:24)
[2019-01-30] MEDS ORDERED: ATIVAN1 MG PO (12:24)
[2019-01-30] MEDS ORDERED: ATIVAN2 MG/1 ML IM (12:24)
[2019-01-30] MEDS ORDERED: HYDROCODONE-AC1 EAC1 PO (12:24)
[2019-05-01] MEDS ORDERED: ZYLOPRIM100 MG PO (20:13)
[2019-05-01] MEDS ORDERED: HUMALOG100 UNIT/2 SQ (20:18)
[2019-05-01] MEDS ORDERED: Ipratropium Brom3 ML INH (20:19)
[2019-05-01] MEDS ORDERED: LANTUS SOL100 UNIT/1 SQ (20:20)
[2019-05-01] MEDS ORDERED: METHADONE HCL10 MG PO (20:22)
[2019-05-01] MEDS ORDERED: NEURONTIN300 MG PO (20:24)
[2019-05-04] MEDS ORDERED: CEPHALEXIN500 M1 PO (12:04)
[2019-05-04] MEDS ORDERED: ATIVAN1 MG PO (12:04)
[2019-05-04] MEDS ORDERED: ATIVAN2 MG/1 ML IM (12:04)
[2019-05-04] MEDS ORDERED: METHADONE HCL10 MG PO (12:18)
[2019-05-04] MEDS ORDERED: NEURONTIN300 MG PO (12:19)
== END 2019-01-30 15:59 | disposition other institution (70) | DRG 871 ==
LOC: ED 23:57 → EDHOLD 01-25 02:44 → 5E 01-25 02:44
PROVIDERS: Family Medicine; Internal Medicine; Student in an Organized Health Care Education/Training Program; ADMIT Internal Medicine
PROC: 00JU3ZZ Inspection of Spinal Canal, Percutaneous Approach (ICD-10-PCS; principal; 2019-01-25)
DX: A41.9 Sepsis, unspecified organism (principal); G93.41 Metabolic encephalopathy; G03.9 Meningitis, unspecified; F20.0 Paranoid schizophrenia; C79.9 Secondary malignant neoplasm of unspecified site; I67.82 Cerebral ischemia; E44.0 Moderate protein-calorie malnutrition; Z66 Do not resuscitate; Z51.5 Encounter for palliative care; R65.20 Severe sepsis without septic shock; K59.00 Constipation, unspecified; E11.65 Type 2 diabetes mellitus with hyperglycemia; H40.9 Unspecified glaucoma; D22.9 Melanocytic nevi, unspecified; E55.9 Vitamin D deficiency, unspecified; G89.29 Other chronic pain; K57.30 Diverticulosis of large intestine without perforation or abscess without bleeding; D53.9 Nutritional anemia, unspecified; E07.9 Disorder of thyroid, unspecified; R22.2 Localized swelling, mass and lump, trunk; R80.1 Persistent proteinuria, unspecified; E11.649 Type 2 diabetes mellitus with hypoglycemia without coma; F41.9 Anxiety disorder, unspecified; N40.0 Benign prostatic hyperplasia without lower urinary tract symptoms; E11.42 Type 2 diabetes mellitus with diabetic polyneuropathy; G40.909 Epilepsy, unspecified, not intractable, without status epilepticus; J44.9 Chronic obstructive pulmonary disease, unspecified; L89.891 Pressure ulcer of other site, stage 1; E66.9 Obesity, unspecified; Z86.73 Personal history of transient ischemic attack (TIA), and cerebral infarction without residual deficits; Z90.49 Acquired absence of other specified parts of digestive tract; Z82.49 Family history of ischemic heart disease and other diseases of the circulatory system; Z83.3 Family history of diabetes mellitus; Z80.9 Family history of malignant neoplasm, unspecified; Z79.4 Long term (current) use of insulin; Z79.84 Long term (current) use of oral hypoglycemic drugs

== ENCOUNTER 2019-02-06 00:59 | Emergency (ER) | payer MEDICARE ==
[~2019-02-06 00:59] MED LIST changes: +Lantus SC
[2019-02-06 06:47] VITALS: BP 151/66
[2019-05-01] MEDS ORDERED: ZYLOPRIM100 MG PO (20:13)
[2019-05-01] MEDS ORDERED: HUMALOG100 UNIT/2 SQ (20:18)
[2019-05-01] MEDS ORDERED: Ipratropium Brom3 ML INH (20:19)
[2019-05-01] MEDS ORDERED: LANTUS SOL100 UNIT/1 SQ (20:20)
[2019-05-01] MEDS ORDERED: METHADONE HCL10 MG PO (20:22)
[2019-05-01] MEDS ORDERED: NEURONTIN300 MG PO (20:24)
[2019-05-04] MEDS ORDERED: CEPHALEXIN500 M1 PO (12:04)
[2019-05-04] MEDS ORDERED: ATIVAN2 MG/1 ML IM (12:04)
[2019-05-04] MEDS ORDERED: ATIVAN1 MG PO (12:04)
[2019-05-04] MEDS ORDERED: METHADONE HCL10 MG PO (12:18)
[2019-05-04] MEDS ORDERED: NEURONTIN300 MG PO (12:19)
== END 2019-02-06 08:15 | disposition home or self-care (01) ==
LOC: ED 00:59
DX: S09.90XA Unspecified injury of head, initial encounter (principal); J44.9 Chronic obstructive pulmonary disease, unspecified; E11.9 Type 2 diabetes mellitus without complications; G40.909 Epilepsy, unspecified, not intractable, without status epilepticus; Z79.899 Other long term (current) drug therapy; Z79.82 Long term (current) use of aspirin; Z86.73 Personal history of transient ischemic attack (TIA), and cerebral infarction without residual deficits; W19.XXXA Unspecified fall, initial encounter; Y93.89 Activity, other specified; Y92.129 Unspecified place in nursing home as the place of occurrence of the external cause; Y99.8 Other external cause status

== ENCOUNTER → 2019-03-01 | Outpatient (CLI) | payer MEDICARE ==
[~2019-03-01] MED LIST changes: +CEPHALEXIN500 M1 PO; +HUMALOG100 UNIT/2 SQ; +Ipratropium Brom3 ML INH; +LANTUS SOL100 UNIT/1 SQ; +ZYLOPRIM100 MG PO
--- NOTE | ~2019-03-01 | SHMRC ---
[place], [place] THERAPY MRC NAME: ELVIA SHI UNIT #: [id number] ROOM: DOCTOR: MIRANDA WHITT MD,CHARLY Patient Name: ELVIA SHI Date: 03/01/2019 Patient Number: [id number] Treating Therapist:Omaira Ugalde Patient Date of : 1950 Location: [facility] Patient Electronic Signature(s) Signed By: Date: Omaira Ugalde 03/01/2019 13:43:15 Omaira Ugalde 03/02/2019 12:46:34 Entered By: Omaira Ugalde on 03/01/2019 13:41:35 Chief Complaint Patient Name: ELVIA SHI Date: 03/01/2019 Patient Number: [id number] Treating Therapist:Omaira Ugalde Patient Date of : 1950 Location: [facility] Patient Reason for Visit RAD/SH Electronic Signature(s) Signed By: Date: Omaira Ugalde 03/01/2019 13:43:15 Omaira Ugalde 03/02/2019 12:46:34 Entered By: Omaira Ugalde on 03/01/2019 13:41:18 Arrival Information Patient Name: ELVIA SHI Date: 03/01/2019 Patient Number: [id number] Treating Therapist:Omaira Ugalde Patient Date of : 1950 Location: [facility] Patient Subjective Initial evaluation completed to generate electronic medical record. Refer to [facility] for full evaluation. Electronic Signature(s) Signed By: Date: Omaira Ugalde 03/01/2019 13:43:15 Omaira Ugalde 03/02/2019 12:46:34 Entered By: Omaira Ugalde on 03/01/2019 13:41:18 Medical History Patient Name: ELVIA SHI Date: 03/01/2019 Patient Number: [id number] Treating Therapist:Omaira Ugalde Patient Date of : 1950 Location: [facility] Patient Past Medical History Electronic Signature(s) Signed By: Date: Omaira Ugalde 03/01/2019 13:43:15 Omaira Ugalde 03/02/2019 12:46:34 Entered By: Omaira Ugalde on 03/01/2019 13:41:18 Allergy List Patient Name: ELVIA SHI Date: 03/01/2019 Patient Number: [id number] Treating Therapist:Omaira Ugalde Patient Date of : 1950 Location: [facility] Patient [place], [place] THERAPY MRC NAME: ELVIA SHI UNIT #: [id number] ROOM: DOCTOR: MIRANDA WHITT MD,CHARLY Electronic Signature(s) Signed By: Date: Omaira Ugalde 03/01/2019 13:43:15 Omaira Ugalde 03/02/2019 12:46:34 Entered By: Omaira Ugalde on 03/01/2019 13:41:18 Arrival Information Patient Name: ELVIA SHI Date: 03/01/2019 Patient Number: [id number] Treating Therapist:Omaira Ugalde Patient Date of : 1950 Location: [facility] Patient Subjective Initial evaluation completed to generate electronic medical record. Refer to [facility] for full evaluation. Electronic Signature(s) Signed By: Date: Omaira Ugalde 03/01/2019 13:43:15 Omaira Ugalde 03/02/2019 12:46:34 Entered By: Omaira Ugalde on 03/01/2019 13:41:18 Assessment Patient Name: ELVIA SHI Date: 03/01/2019 Patient Number: [id number] Treating Therapist:Omaira Ugalde Patient Date of : 1950 Location: [facility] Patient Assessment Initial evaluation completed to generate electronic medical record. Refer to [facility] for full evaluation. Electronic Signature(s) Signed By: Date: Omaira Ugalde 03/01/2019 13:43:15 Omaira Ugalde 03/02/2019 12:46:34 Entered By: Omaira Ugalde on 03/01/2019 13:39:55 SuperBill Patient Name: ELVIA SHI Date: 03/01/2019 Patient Number: [id number] Treating Therapist:Omaira Ugalde Patient Date of : 1950 Location: [facility] Patient Visit Start Time 1:00 PM Visit End Time 2:00 PM Visit Duration 60 minutes Procedures CPT Gamaliel Code Intervention Modifier Minutes Units 66161 [id number] MOTION FLUOROSCOPY/SWALLOW 60 1 Total Timed Minutes 0 Total Treatment Minutes 60 Electronic Signature(s) Signed By: Date: Omaira Ugalde 03/02/2019 12:46:34 03/01/2019 1:42:49 PM Version Signed By: Date: Omaira Ugalde 03/01/2019 1:43:15 PM Entered By: Omaira Ugalde on 03/02/2019 12:46:10 [place], [place] THERAPY MRC NAME: ELVIA SHI UNIT #: [id number] ROOM: DOCTOR: MIRANDA WHITT MD,CHARLY Chief Complaint Patient Name: ELVIA SHI Date: 03/01/2019 Patient Number: [id number] Treating Therapist:Omaira Ugalde Patient Date of : 1950 Location: [facility] Patient Reason for Visit RAD/SH Electronic Signature(s) Signed By: Date: Omaira Ugalde 03/01/2019 13:43:15 Omaira Ugalde 03/02/2019 12:46:34 Entered By: Omaira Ugalde on 03/01/2019 13:41:18 Medical History Patient Name: ELVIA SHI Date: 03/01/2019 Patient Number: [id number] Treating Therapist:Omaira Ugalde Patient Date of : 1950 Location: [facility] Patient Past Medical History Electronic Signature(s) Signed By: Date: Omaira Ugalde 03/01/2019 13:43:15 Omaira Ugalde 03/02/2019 12:46:34 Entered By: Omaira Ugalde on 03/01/2019 13:41:18 Patient Profile Patient Name: ELVIA SHI Date: 03/01/2019 Patient Number: [id number] Treating Therapist:Omaira Ugalde Patient Date of : 1950 Location: [facility] Patient Electronic Signature(s) Signed By: Jaime: Omaira Ugalde 03/01/2019 13:43:15 Omaira Ugalde 03/02/2019 12:46:34 Entered By: Omaira Ugalde on 03/01/2019 13:41:43 Plan Patient Name: ELVIA SHI Date: 03/01/2019 Patient Number: [id number] Treating Therapist:Omaira Ugalde Patient Date of : 1950 Location: [facility] Patient Electronic Signature(s) Signed By: Date: Omaira Ugalde 03/01/2019 13:43:15 Omaira Ugalde 03/02/2019 12:46:34 Entered By: Omaira Ugalde on 03/01/2019 13:42:08 Allergy List Patient Name: ELVIA SHI Date: 03/01/2019 Patient Number: [id number] Treating Therapist:Omaira Ugalde Patient Date of : 1950 Location: [facility] Patient Electronic Signature(s) Signed By: Date: [place], [place] THERAPY [facility]C NAME: ELVIA SHI UNIT #: [id number] ROOM: DOCTOR: MIRANDA WHITT MD,Omaira Ziegler 03/01/2019 13:43:15 Omaira Ugalde 03/02/2019 12:46:34 Entered By: Omaira Ugalde on 03/01/2019 13:41:18 CM:PTMRC 1345 1345 [facility]
--- NOTE | ~2019-03-01 | PROC NOTE ---
[place], [place] PROCEDURE NOTE NAME: ELVIA SHI UNIT #: [id number] ROOM: DOCTOR: HERNANDOCORNELIAKWAME BIRTHDATE: [birth year] DOS: 03/01/2019 MODIFIED BARIUM SWALLOW PHYSICIAN: Dr. Pinto. RADIOLOGIST: Dr. Alfonso. BACKGROUND INFORMATION: The patient is a 68-year-old patient who was seen for modified barium swallow. This test was ordered due to choking episodes. The patient reported that he can choke at times with food or liquid. He is from a [facility] and receives a regular diet and thin liquid. Significant medical history includes seizure disorder, TIA, learning disability, and paranoid schizophrenia. For today's assessment, the patient was alert and able to follow commands. Respiratory status was within normal limits. Oral peripheral examination revealed presence of several natural teeth. Lingual, labial, and buccal skills were within normal limits in terms of strength, range of motion, and coordination. The patient was able to volitionally cough and swallow. METHODS AND MATERIALS USED FOR THE EXAMINATION: The patient was positioned in the lateral plane and the exam was viewed under fluoroscopy. The patient was presented with a variety of consistencies to assess swallowing skills including applesauce mixed with barium presented in half teaspoon amounts, barium-coated cookie given in bite size piece and thin liquid barium which was taken by cup and straw. The patient held the cup and swallowed in sip size amounts. ORAL PHASE: Unremarkable. PHARYNGEAL PHASE: Unremarkable. ESOPHAGEAL PHASE: This phase of the swallow was not formally assessed during this exam. IMPRESSIONS AND RECOMMENDATIONS: Based upon assessment results, this 68-year-old patient presents with oral and pharyngeal swallowing skills that are within normal limits. Recommend he remain on present diet with use of strategies including small bites and sips, eating slowly, and chewing thoroughly. Results and recommendations were shared with the patient and an aid that accompanied him. A written copy was also provided for education of [facility] staff. Thank you very much for this referral. Should you have any questions regarding this patient, please contact the speech pathologist at [phone]. [place], [place] PROCEDURE NOTE NAME: ELVIA SHI UNIT #: [id number] ROOM: DOCTOR: HERNANDOCORNELIAKWAME BIRTHDATE: [birth year] [place] CM:KARYN:PROCEDURE NOTE 1348 1657 [place]
--- NOTE | ~2019-03-01 | SLPPN ---
[place], [place] CLEAN UP PERSON PROGRESS NOTE NAME: ELVIA SHI UNIT #: [id number] ROOM: DOCTOR: CHARLY GALLAGHER FACP, MD Patient Name: ELVIA SHI Date: 03/01/2019 Patient Date of : 1950 [facility] Start of Care: 03/01/2019 Reason for Treatment: RAD/SH Visits since start of care: 1 Primary Care Physician: CHARLY GALLAGHER FACP, M.D. Referring Physician: CHARLY GALLAGHER FACP, M.D. Speech-Language Pathology Treatment Note Diagnosis Reason for Visit RAD/SH Arrival Information Subjective Initial evaluation completed to generate electronic medical record. Refer to [facility] for full evaluation. Medical History Past Medical History Patient Profile Assessment Assessment Initial evaluation completed to generate electronic medical record. Refer to [facility] for full evaluation. [facility] Visit Start Time 1:00 PM Visit End Time 2:00 PM Visit Duration 60 minutes Procedures CPT [place]os Code Intervention Modifier Minutes Units [id number] MOTION FLUOROSCOPY/SWALLOW 60 1 95370 Total Timed Minutes 0 Total Treatment Minutes 60 Plan Therapist Signature(s) Signed By: Omaira Ugalde [facility] License #: [id number] 03/02/2019, 12:46 PM CM:JACQUIE 1345 1345 [facility]
--- NOTE | 2019-03-01 13:32 | NUR ---
SPEECH PATHOLOGY Outpatient MBS completed as per orders. This was ordered due to choking episodes. Patient reported that he can choke sometimes with food or liquid. He is from a [facility] and receives a regular diet and thin liquid. Significant medical history includes seizure disorder, TIA, learning disability and paranoid schizophrenia. He was assessed with puree, solid and thin liquids taken via cup and straw. Results revealed oral and pharyngeal swallowing skills WNL with all consistencies. Recommend he remain on present diet with use of strategies including small bites/sips, eating slowly and chewing thoroughly. These results and recommendations were shared with patient and aide that accompanied him. A written copy was also provided for education of NH staff. Dictated report to follow. Thank you for this referral. KWAME MILES MSCCC-JORDAN WORKER
== END | disposition home or self-care (01) ==
LOC: RAD/SH 12:40
DX: R13.10 Dysphagia, unspecified (principal); T18.120A Food in esophagus causing compression of trachea, initial encounter; R09.89 Other specified symptoms and signs involving the circulatory and respiratory systems; X58.XXXA Exposure to other specified factors, initial encounter; Y93.89 Activity, other specified; Y92.89 Other specified places as the place of occurrence of the external cause; Y99.8 Other external cause status

== ENCOUNTER 2019-08-17 06:02 | Emergency (ER) | payer MEDICARE ==
[~2019-08-17] VITALS: Wt 115.2 kg
[2019-08-17 06:10] VITALS: BP 134/50
== END 2019-08-17 07:39 | disposition other institution (70) ==
LOC: ED 06:02
DX: Z00.00 Encounter for general adult medical examination without abnormal findings (principal); G40.909 Epilepsy, unspecified, not intractable, without status epilepticus; J44.9 Chronic obstructive pulmonary disease, unspecified; E11.9 Type 2 diabetes mellitus without complications; Z79.899 Other long term (current) drug therapy; Z79.82 Long term (current) use of aspirin; Z79.4 Long term (current) use of insulin; Z86.718 Personal history of other venous thrombosis and embolism

== ENCOUNTER 2019-09-28 00:27 | Inpatient (IN) | payer MEDICARE ==
[~2019-09-28] VITALS: Ht 172.7 cm; Wt 100.9 kg
[2019-09-28] VITALS (9 sets, daily range): BP systolic 100–124; BP diastolic 50–71
--- NOTE | ~2019-09-28 | EKG ---
[place], [place] ELECTROCARDIOGRAM REPORT NAME: ELVIA SHI UNIT #: [id number] ROOM: 507 DOCTOR: DURGA DRAFT REPORT BIRTHDATE: [birth year] [facility] Test Date: 2019-09-28 Test Time: 00:45:13 Pat Name: ELVIA SHI Department: Room: 507 Gender: M Mud Analysis Operator: : 1950 Requested By: ECHO PARKS Order Number: [id number] Reading MD: Katheryn Pedraza MD Measurements Intervals [place] Rate: 100 P: 60 [place]: 168 QRS: -32 QRSD: 92 T: 72 QT: 285 QTc: 368 Interpretive Statements Sinus tachycardia Left axis deviation Borderline T wave abnormalities Compared to ECG 05/01/2019 16:49:13 Sinus rhythm no longer present T-wave abnormality still present Electronically Signed On 09-28-2019 15:54:24 PDT by Katheryn Pedraza MD CM:EKGRPT:ELECTROCARDIOGRAM REPORT 0045 1554 ECHO YOON DRAFT REPORT ECHO PARKS DO
--- NOTE | 2019-09-28 00:30 | NUR ---
PER EMS THE PATIENT LAST WELL KNOWN WAS 09/27/10 AT 1100. THE PATIENT THEN AT THE [facility] BECAME VERY LETHARGIC, HAD LEFT SIDED WEAKNESS, AND BECAME CONFUSED. THE [facility] SENT THE PATIENT TO [facility] AFTER HOURS OF OF KNOWN CONDITION. THE PATIENT AT THIS TIME IS HIGHLY CVA QUESTIONABLE. BRAIN ATTACK CALLED ON PATIENT.
--- NOTE | 2019-09-28 00:40 | NUR ---
PATIENT IS MORE ALERT AT THIS TIME. PATIENTS WORDS NOT APPROPRIATE. PATIENT STILL AT THIS TIME VERY LETHARGIC. PATIENT HOOKED UP TO HEART MON, CONT BP, AND POX. PATIENT PUT ON 3LNC.
[2019-09-28 00:55] LABS: HEMATOCRIT 33.8 % (42.0-52.0); HEMOGLOBIN 10.8 g/dl (14.0-18.0); MEAN CELL VOLUME 99.1 fl (80.0-94.0); MEAN CORPUSCULAR HGB 31.7 pg (27.0-31.0); MEAN PLATELET VOLUME 10.6 fl (9.6-12.3); PLATELET COUNT AUTOMATED 132 10*3/uL (130-400); RED BLOOD COUNT 3.41 10*6/uL (4.50-5.90); RED CELL DISTRI WIDTH 15.2 % (0-14.5); WHITE BLOOD COUNT 29.6 10*3/uL (4.8-10.8)
[2019-09-28 01:06] LABS: ACT PARTIAL THROMBO TIME 29.8 SECONDS (20.0-32.1)
[2019-09-28 01:12] LABS: ALBUMIN 3.4 gm/dl (3.1-4.5); ALKALINE PHOSPHATASE 52 U/L (45-117); BUN 20 mg/dl (7-24); CHLORIDE 107 mmol/L (98-107); CREATININE 1.63 mg/dL (0.70-1.30); PLATELET SUFFICIENCY LOW (NORMAL); POTASSIUM 4.1 mmol/L (3.5-5.1); SGOT/AST 19 IU/L (3-35); SGPT/ALT 18 U/L (12-78); SODIUM 142 mmol/L (136-145); TOTAL CELLS COUNTED 100 #CELLS; TOTAL PROTEIN 8.5 gm/dL (6.4-8.2)
[2019-09-28 01:13] LABS: TROPONIN I < 0.015 ng/ml (<0.045)
--- NOTE | 2019-09-28 01:30 | NUR ---
PATIENT IS RESTING IN BED. PATIENTS CONDITION STILL THE SAME. NO CONCERNS AT THIS TIME.
[2019-09-28 01:33] LABS: BILIRUBIN NEGATIVE (NEGATIVE); BLOOD 2+ (NEGATIVE); CLARITY SL CLOUDY (CLEAR); COLOR YELLOW (YELLOW); GLUCOSE 3+ (NEGATIVE); KETONE NEGATIVE (NEGATIVE); LEUKO ESTERASE TRACE (NEGATIVE); NITRITE POSITIVE (NEGATIVE); SPECIFIC GRAVITY 1.015 (1.005-1.030); UROBILINOGEN 0.2 E.U./dl (0.2-1.0)
[2019-09-28 01:50] LABS: BACTERIA 3+; RBC 31-40 rbc/hpf (0-2); WBC 21-30 wbc/hpf (0-5)
--- NOTE | 2019-09-28 02:23 | NUR ---
PATIENT WITH WOUNDS TO BOTTOCK AREA. PATIENT REFUSED WOUND PHOTOS AT THIS TIME. PATIENT WAS VERY UNCOMFORTABLE AND REQUESTED NOT TO BE TURNED AT THIS TIME. WOUNDS ON BUTTOCK WERE NOTED.
--- NOTE | 2019-09-28 03:00 | NUR ---
A 69, admitted to 5E, under the services of MELIDA Boland DO with a diagnosis of UTI/SEPSIS/CHANGE IN MENTAL STATUS. Chief complaint is STROKE. Patient arrived via stretcher from ER. Monitor applied. Initial assessment completed. Vital signs taken and recorded. MELIDA BOLAND DO notified of admission to the unit. Orders received. See assessment for past medical history, medications and allergies. Patient and/or family oriented to unit. visitation policy reviewed. Clothing/patient valuable form completed. ENZO GOODWIN A
--- NOTE | 2019-09-28 04:55 | NUR ---
ELVIA SHI [id number] Please refer to the physician's history and physical for past medical history, comorbid conditions, and allergies. Diagnosis: UTI, SEPSIS, CHANGE IN MENTAL STATUS Manny Score: , WOUND DESCRIPTIONS: Wound Number: 1 Location of the wound: right upper buttocks lateral Type of wound: stage 2 Thickness: Partial Size: 0.3cm x 0.8cm x 0.1cm Tunneling: none Undermining: none Sinus Tract: none Presence of Exudate: Serosanguineous Amount: Light Color: Red Odor: None Periwound Skin Appearance: Normal Wound edges: approximated Pain (associated with wound): none at time of assessment How does patient state this happened? pt unable to state how this happened Wound Number: 2 Location of the wound: right upper posterior thigh Type of wound: stage 2 Thickness: Partial Size: 4.5cm x 8.5cm x 0.1cm Tunneling: none Undermining: none Sinus Tract: none Presence of Exudate: Serosanguineous Amount: Light Color: Red Odor: None Periwound Skin Appearance: Scar Wound edges: approximated Pain (associated with wound): none at time of assessment How does patient state this happened? pt unable to state how this happened Wound Number: 3 Location of the wound: left posterior upper thigh Type of wound: stage 2 Thickness: Partial Size: 7.5cm x 7.5cm x 0.1cm Tunneling: none Undermining: none Sinus Tract: none Presence of Exudate: Serosanguineous Amount: Light Color: Red Odor: None Periwound Skin Appearance: Scar Wound edges: approximated Pain (associated with wound): none at time of assessment How does patient state this happened? pt unable to state how this happenend Right and left medial buttocks scar tissue noted at time of assessment. No drainage at time of assessment. Bilateral heels are mushy to touch. Surface the patient is resting on: Isoflex SKIN PREVENTION RECOMMENDATION: 1. Pressure redistribution support surface as appropriate 2. Elevate heels 3. Remove boots/TEDS every shift and reapply 4. Head of bed 30 degrees as tolerated 5. Assess nutrition and hydration 6. Manage moisture 7. Avoid the use of containment devices while in bed 8. Use absorptive products on surfaces limit layers of linens on bed 9. Turn and reposition every 1-2 hours in bed and every 1 hour in chair as tolerated 10. Weight shifts every 15 minutes while up in chair 11. Offloading with pillows or device to keep heels elevated off bed 12. Monitor skin at least every shift 13. Inspect under medical devices twice a day WOUND TREATMENT RECOMMENDATIONS: Wheelchair cushion when oob. Heel raiser pro boots to bilateral feet while in bed. Cleanse right upper buttocks, right posterior upper thigh and left posterior upper thigh with soap and water and apply calazime every shift and prn for soiling.
[2019-09-28] MEDS ORDERED: ACCUNEB 0.1.25 MG/1 INH (05:16)
[2019-09-28] MEDS ORDERED: NEURONTIN600 MG PO (05:27)
[2019-09-28] MEDS ORDERED: KEPPRA750 MG PO (05:28)
[2019-09-28 05:29] LABS: BUN 19 mg/dl (7-24); CHLORIDE 116 mmol/L (98-107); CREATININE 1.35 mg/dL (0.70-1.30); PHOSPHOROUS 2.7 mg/dL (2.5-4.9); SODIUM 147 mmol/L (136-145)
[2019-09-28] MEDS ORDERED: ATIVAN0.5 MG PO (05:30)
[2019-09-28] MEDS ORDERED: METFORMIN HYDR500 MG PO (05:33)
[2019-09-28] MEDS ORDERED: SANADERMRX SKI1 EACH T (05:35)
[2019-09-28] MEDS ORDERED: JARDIANCE10 MG PO (05:35)
[2019-09-28] MEDS ORDERED: JARDIANCE25 MG PO (05:36)
--- NOTE | 2019-09-28 05:37 | NUR ---
ATTEMPTED TO REACH RESIDENT RN OR LVN IN REGARDS TO MED REC BEING UP TO DATE. WILL TRY AGAIN.
--- NOTE | 2019-09-28 05:41 | NUR ---
ATTEMPTED TO CONTACT RESIDENT BELLPERSON IN REGARDS TO LACTIC ACID OF 2.3, TRENDING DOWN. WILL TRY AGAIN.
[2019-09-28 05:57] LABS: BASO % 0.1 % (0.0-1.0); EOS % 0.1 % (1.0-4.0); HEMATOCRIT 33.3 % (42.0-52.0); HEMOGLOBIN 10.5 g/dl (14.0-18.0); LYMPH # 1.7 10*3/uL (1.3-4.4); LYMPH % 7.9 % (27.0-41.0); MEAN CELL VOLUME 99.7 fl (80.0-94.0); MEAN CORPUSCULAR HGB 31.4 pg (27.0-31.0); MEAN CORPUSCULAR HGB CONC 31.5 g/dl (33.0-37.0); MEAN PLATELET VOLUME 11.6 fl (9.6-12.3); MONO # 0.8 10*3/uL (0.1-1.0); MONO % 3.9 % (3.0-9.0); NEUT # 18.9 10*3/uL (2.3-7.9); NEUT % 87.6 % (47.0-73.0); PLATELET COUNT AUTOMATED 117 10*3/uL (130-400); RED BLOOD COUNT 3.34 10*6/uL (4.50-5.90); RED CELL DISTRI WIDTH 15.4 % (0-14.5); WHITE BLOOD COUNT 21.6 10*3/uL (4.8-10.8)
--- NOTE | 2019-09-28 09:42 | NUR ---
NOIFIED DR MCLAIN OFFICE OF NEW CONSULT
--- NOTE | 2019-09-28 11:55 | NUR ---
Dr. Olivares notified of wound care recommendations.
--- NOTE | 2019-09-28 12:05 | NUR ---
LET DR RAYMUNDO KNOW THAT PATIENTS BLOOD CULTURES WERE POSITIVE. STATED TO ORDER ANOTHER SET OF CULTURES
--- NOTE | 2019-09-28 12:10 | NUR ---
INFORMEDDR TORMA OF PTS BLOOD SUGAR OF 63. STATED TO GIVE DEXTROSE
--- NOTE | 2019-09-28 14:34 | NUR ---
PHYSICAL THERAPY Pt still unresponsive. Will attempt later when appropriate. Thank you Fabienne Schultz, PT, DPT
--- NOTE | 2019-09-28 16:00 | NUR ---
PTS BLOOD SUGAR 152
--- NOTE | 2019-09-28 20:30 | NUR ---
PT. ATE HALF SANDWICH, ALL APPLESAUCE AND MILK AND RETAINED.
--- NOTE | 2019-09-28 22:30 | NUR ---
BSG 130 NO INSULIN GIVEN FOR THIS. PT.IS MORE ALERT AND ACTIVE IN BED. ANSWERS QUESTIONS APPROPRAITLEY AND RECONGNIZING STAFF MEMBERS THAT HAVE TAKEN CARE OF HIM IN PREVIOUS YEARS. WHEN PATIENT ANSWERS QUESTIONS HE IS SOMETIMES SLOW TO RESPOND AND REPEATS HIMSELF.
[2019-09-29] VITALS: BP 132/50
--- NOTE | 2019-09-29 02:00 | NUR ---
PT. ALERT YELLS OUT FOR HELP INSTEAD OF USING CALL LIGHT. INSTRUCTED PT. TO TRY TO USE CALL LIGHT. PATIENT INCONTINENT URINE AND ALSO ASKS TO USE URINAL. BATH WAS GIVEN AND BEDLINENS CHANGED.
--- NOTE | 2019-09-29 02:35 | NUR ---
24 HR chart check completed.
--- NOTE | 2019-09-29 05:07 | NUR ---
NORCO GIVEN PER ORDER FOR RIGHT EAR PAIN PATIENT STATED "I HURTS REAL BAD". SEE MAR.
--- NOTE | 2019-09-29 06:14 | NUR ---
WENT TO DO BEDSIDE GLUCOSE AND PT. YELLING "IT'S TOO MUCH". REFUSED BLOOD SUGAR THIS MORNING.
--- NOTE | 2019-09-29 07:04 | NUR ---
PATIENT REFUSED BSG BUT DID LET THEM DRAW BLOOD. GLUCOSE IS IN LAB WORK FOR THIS MORNING.
[2019-09-29 07:05] LABS: BASO % 0.1 % (0.0-1.0); EOS % 0.2 % (1.0-4.0); HEMATOCRIT 26.4 % (42.0-52.0); HEMOGLOBIN 8.5 g/dl (14.0-18.0); LYMPH # 1.9 10*3/uL (1.3-4.4); LYMPH % 15.8 % (27.0-41.0); MEAN CELL VOLUME 98.1 fl (80.0-94.0); MEAN CORPUSCULAR HGB 31.6 pg (27.0-31.0); MEAN CORPUSCULAR HGB CONC 32.2 g/dl (33.0-37.0); MEAN PLATELET VOLUME 10.8 fl (9.6-12.3); MONO # 0.7 10*3/uL (0.1-1.0); NEUT # 9.5 10*3/uL (2.3-7.9); NEUT % 77.5 % (47.0-73.0); PLATELET COUNT AUTOMATED 100 10*3/uL (130-400); RED BLOOD COUNT 2.69 10*6/uL (4.50-5.90); RED CELL DISTRI WIDTH 14.9 % (0-14.5); WHITE BLOOD COUNT 12.2 10*3/uL (4.8-10.8)
[2019-09-29 07:30] LABS: BUN 15 mg/dl (7-24); CHLORIDE 112 mmol/L (98-107); CREATININE 1.18 mg/dL (0.70-1.30); POTASSIUM 3.5 mmol/L (3.5-5.1); SODIUM 142 mmol/L (136-145)
[2019-09-29 08:00] VITALS: BP 108/48
[2019-09-29 12:00] VITALS: BP 131/49
--- NOTE | 2019-09-29 12:21 | NUR ---
PHYSICAL THERAPY PT SCREEN COMPLETED TODAY AND PATIENT IS FOUND TO NOT BE APPROPRIATE FOR PT SERVICES AT THIS TIME. [place] WHERE [place] HAS BEEN FOR OVER 7 YEARS AND IS NON AMBULATORY AND A JUAN FOR ALL TRANSFERS. BASED ON SCREEN NO PT SERVICES RECOMMENDED. THANK YOU FOR REFERRAL [facility] JIMENES PT
--- NOTE | 2019-09-29 13:25 | NUR ---
PATIENT TOOK PO MEDS, WILL NOT TAKE EYE DROPS OR INSULINS. ADMINISTERED IV MERREM SCHEDULED, HE STATES HE WILL NOT TAKE THE IV VANCOMYCIN AT THIS TIME. WILL TRY AGAIN TO ADMINISTER IN 30 MINUTES.
--- NOTE | 2019-09-29 13:55 | NUR ---
PATIENT REFUSED VANCOMYCIN, WILL ATTEMPT LATER.
[2019-09-29 16:00] VITALS: BP 136/52
--- NOTE | 2019-09-29 16:00 | NUR ---
VANCOMYCIN INFUSING ORDERED.
[2019-09-29 20:00] VITALS: BP 122/49
--- NOTE | 2019-09-29 22:13 | NUR ---
REFUSED BSG CHECK.
[2019-09-30] VITALS: BP 144/53
--- NOTE | 2019-09-30 04:14 | NUR ---
24HR CHART CHECK COMPLETED
--- NOTE | 2019-09-30 04:44 | NUR ---
C/O HEADACHE, NORCO GIVEN. WILL MONITOR. CALL LIGHT IN REACH. BED ALARM ON.
[2019-09-30 06:58] LABS: BASO % 0.2 % (0.0-1.0); EOS # 0.1 10*3/uL (0.0-0.4); EOS % 1.5 % (1.0-4.0); HEMATOCRIT 26.4 % (42.0-52.0); HEMOGLOBIN 8.4 g/dl (14.0-18.0); LYMPH % 36.6 % (27.0-41.0); MEAN CELL VOLUME 98.1 fl (80.0-94.0); MEAN CORPUSCULAR HGB 31.2 pg (27.0-31.0); MEAN CORPUSCULAR HGB CONC 31.8 g/dl (33.0-37.0); MEAN PLATELET VOLUME 11.7 fl (9.6-12.3); MONO # 0.5 10*3/uL (0.1-1.0); MONO % 9.1 % (3.0-9.0); NEUT # 2.8 10*3/uL (2.3-7.9); NEUT % 52.2 % (47.0-73.0); PLATELET COUNT AUTOMATED 120 10*3/uL (130-400); RED BLOOD COUNT 2.69 10*6/uL (4.50-5.90); RED CELL DISTRI WIDTH 14.7 % (0-14.5); WHITE BLOOD COUNT 5.4 10*3/uL (4.8-10.8)
[2019-09-30 07:22] LABS: BUN 13 mg/dl (7-24); CHLORIDE 114 mmol/L (98-107); POTASSIUM 3.6 mmol/L (3.5-5.1); SODIUM 145 mmol/L (136-145)
[2019-09-30 08:00] VITALS: BP 123/55
--- NOTE | 2019-09-30 09:03 | NUR ---
DR. URFF NOTIFIED OF BLOOD CULTURE RESULT OBTAINED 09/28/19.
--- NOTE | 2019-09-30 09:39 | NUR ---
PATIENT REFUSED XALATAN EYE DROPS AND BYETTA INJECTION, BUT IS AGREEABLE TO LANTUS INSULIN TODAY. TOOK PO MEDS WITHOUT DIFFICULTY, STATES EATING WELL THIS MORNING AND FEELING OK.
[2019-09-30 12:00] VITALS: BP 118/50
--- NOTE | 2019-09-30 12:00 | NUR ---
ADMINISTERED BYETTA AND HUMALOG INSULIN COVERAGE FOR BSG 219 AT THIS TIME.
--- NOTE | 2019-09-30 14:30 | NUR ---
MEDICATED WITH PRN PO NORCO FOR RIGHT ANKLE PAIN.
--- NOTE | 2019-09-30 15:52 | NUR ---
PRN PO NORCO EFFECTIVE, PER PATIENT.
[2019-09-30 16:00] VITALS: BP 131/53
--- NOTE | 2019-09-30 16:01 | NUR ---
PATIENT YELLS OUT IN PAIN WITH MOVEMENT OF ANKLES, ESPECIALLY LEFT ANKLE, STATES LEFT ANKLE MUCH WORSE THAN RIGHT. REMOVED KAROLYN HOSE TO ASSESS, LEFT ANKLE IS WARM TO TOUCH AND MORE SWELLING NOTED TO THE LEFT. HEELS ARE INTACT, PEDAL PULSES 2+ BILATERALLY, SOME RELIEF WHEN HEEL PROTECTORS APPLIED, PER PATIENT. DR. MUNROE NOTIFIED OF THESE FINDINGS.
--- NOTE | 2019-09-30 16:18 | NUR ---
DR. MUNROE AND DR. RUFF IN TO ASSESS THE PATIENT.
[2019-09-30 20:00] VITALS: BP 164/70
--- NOTE | 2019-09-30 20:34 | NUR ---
CALLED FOR BP 164/80. THIS IS UNUSUAL FOR THE PT AND C/O "HEAD IS BURNING". ORDERS REC'D FOR HYDRALAZINE 5MG AND TYLENOL. SEE. MAR.
[2019-09-30 21:31] VITALS: BP 138/62
--- NOTE | 2019-09-30 21:31 | NUR ---
BP 138/62 FOLLOWING APRESOLINE. CALL LIGHT IN REACH. BED ALARM ON.
--- NOTE | 2019-09-30 22:52 | NUR ---
NO SXS OF DISTRESS NOTED. IN BED, SLEEPING. CALL LIGHT IN REACH. BED ALARM ON. RESTING COMFORTABLY. VSS.
[2019-10-01] VITALS: BP 152/53
--- NOTE | 2019-10-01 02:35 | NUR ---
24HR CHART CHECK COMPLETED
[2019-10-01 08:00] VITALS: BP 147/60
--- NOTE | 2019-10-01 08:34 | NUR ---
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
--- NOTE | 2019-10-01 08:52 | NUR ---
EQUIPMENT VALIDATION ENGINEER faxed clinical updates to [facility]. -HOLLIE WiseW
[2019-10-01 12:00] VITALS: BP 147/50
--- NOTE | 2019-10-01 13:43 | NUR ---
PT IS INTERMEDIATE CARE AT [facility] AND STATES HE WILL RETURN THERE ON DISCHARGE. WILL CONTINUE TO FOLLOW.
[2019-10-01 16:00] VITALS: BP 149/57
[2019-10-01 20:00] VITALS: BP 139/53
[2019-10-02] VITALS (9 sets, daily range): BP systolic 149–166; BP diastolic 50–75
--- NOTE | 2019-10-02 00:52 | NUR ---
PATIENT RESTING IN BED WITH EYES CLOSED. NO SIGNS OR SYMPTOMS OF DISTRESS NOTED. VITAL SIGNS STABLE. RESPIRATIONS REGULAR AND NON-LABORED. BED ALARM ON. WILL CONTINUE TO MONITOR. CALL LIGHT IN REACH.
--- NOTE | 2019-10-02 00:58 | NUR ---
24 HR chart check completed.
--- NOTE | 2019-10-02 07:38 | NUR ---
PT REFUSED TO HAVE LAB WORK DRAWN THIS AM AFTER PRINTING MACHINE OPERATOR TAPE RULES HAD TRIED 2 TIMES WITHOUT SUCCESS AND PT THEN REFUSED TO BE STUCK AGAIN.
--- NOTE | 2019-10-02 09:20 | NUR ---
PT TAKEN TO SURGERY DEPT FOR ROSS AT THIS TIME.
--- NOTE | 2019-10-02 12:31 | NUR ---
PT IS RESIDENTIAL CARE AT [facility]. WILL RETURN WHEN MEDICALLY STABLE. WILL CONTINUE TO FOLLOW.
--- NOTE | 2019-10-02 16:56 | NUR ---
DR SEGAL STATED HE NOTIFIED DR WONG OF THE NEW CONSULT AND DR WONG STATED TO HIM THAT HE WILL DO A THYROID BIOPSY AT BEDSIDE TOMORROW.
--- NOTE | 2019-10-02 17:30 | NUR ---
I LEFT A MESSAGE FOR PT'S LEGAL GUARDIAN NATE GAITAN REGARDING BIOPSY TOMMOROW. AWAITING RETURN CALL.
--- NOTE | 2019-10-02 17:35 | NUR ---
PT LEGAL GUARDIAN RETURNED CALL AND TELEPHONE CONSENT GIVEN BY HER FOR THYROID BIOPSY.
[2019-10-03] VITALS: BP 170/72; BP 171/52
--- NOTE | 2019-10-03 04:34 | NUR ---
Upon discharge recommend patient to follow up for wound care in outpatient setting continue current wound care orders at discharging facility.
[2019-10-03 08:00] VITALS: BP 153/53
[2019-10-03 08:41] LABS: BASO % 0.3 % (0.0-1.0); EOS # 0.2 10*3/uL (0.0-0.4); EOS % 2.1 % (1.0-4.0); HEMATOCRIT 29.4 % (42.0-52.0); HEMOGLOBIN 9.7 g/dl (14.0-18.0); LYMPH # 3.4 10*3/uL (1.3-4.4); LYMPH % 43.1 % (27.0-41.0); MEAN CELL VOLUME 93.3 fl (80.0-94.0); MEAN CORPUSCULAR HGB 30.8 pg (27.0-31.0); MEAN PLATELET VOLUME 10.1 fl (9.6-12.3); MONO # 0.5 10*3/uL (0.1-1.0); MONO % 5.9 % (3.0-9.0); NEUT # 3.7 10*3/uL (2.3-7.9); NUCLEATED RED BLOOD CELL 0.3 % (0.0-0.0); PLATELET COUNT AUTOMATED 189 10*3/uL (130-400); RED BLOOD COUNT 3.15 10*6/uL (4.50-5.90); RED CELL DISTRI WIDTH 14.1 % (0-14.5); WHITE BLOOD COUNT 7.8 10*3/uL (4.8-10.8)
[2019-10-03 09:01] LABS: ALBUMIN 2.6 gm/dl (3.1-4.5); ALKALINE PHOSPHATASE 39 U/L (45-117); BUN 10 mg/dl (7-24); CHLORIDE 110 mmol/L (98-107); CREATININE 0.92 mg/dL (0.70-1.30); POTASSIUM 3.7 mmol/L (3.5-5.1); SGOT/AST 18 IU/L (3-35); SGPT/ALT 16 U/L (12-78); SODIUM 145 mmol/L (136-145); TOTAL PROTEIN 7.3 gm/dL (6.4-8.2)
--- NOTE | 2019-10-03 10:44 | NUR ---
SPEECH PATHOLOGY Nursing screen completed. Patient was admitted from [facility] for possible CVA. Speech consult is recommended if patient displays acute communication or swallowing difficulties. KWAME MILES [employer]-CONCRETE FLOAT MAKER
[2019-10-03 12:00] VITALS: BP 145/55
--- NOTE | 2019-10-03 13:19 | NUR ---
R PICC LINE HAS BEEN PLACED AND R THYROID BIOPSY HAS BEEN COMPLETED.
--- NOTE | 2019-10-03 14:02 | NUR ---
PT IS ALF CARE AT [facility] AND WILL RETURN WHEN MEDICALLY STABLE. WILL CONTINUE TO FOLLOW.
--- NOTE | 2019-10-03 14:33 | NUR ---
CYANIDE POT HARDENER notified [facility] that the patient will need Merrem until the 11th and Cefazolin for 5weeks. CYANIDE POT HARDENER faxed clinical updates to [facility]. -NEENA Wise
[2019-10-03 16:00] VITALS: BP 146/54
[2019-10-03 20:00] VITALS: BP 136/44
--- NOTE | 2019-10-03 20:10 | NUR ---
PATIENT COMPLAINS OF 7/10 HEADACHE. MEDICATED PER ORDER. WILL CONTINUE TO MONITOR FOR RELIEF. VOICES NO OTHER CONCERNS. RESTING IN BED. CALL LIGHT WITHIN REACH
--- NOTE | 2019-10-03 21:00 | NUR ---
Hep Lock discontinued. Site asymptomatic. Pressure applied. Sterile dressing applied. LAKSHMI IRWIN
--- NOTE | 2019-10-03 21:10 | NUR ---
NORCO EFFECTIVE PER PT
--- NOTE | 2019-10-03 23:27 | NUR ---
24 HR chart check completed.
[2019-10-04] VITALS: BP 150/61
--- NOTE | 2019-10-04 01:44 | NUR ---
Patient resting quietly with no c/o discomfort. Respirations easy and regular. Vital signs stable. No overt distress. CALL LIGHT WITHIN REACH. HISSOM,LAKSHMI
--- NOTE | 2019-10-04 06:05 | NUR ---
BLOOD SUGAR 80
--- NOTE | 2019-10-04 06:24 | NUR ---
LAB HERE TO DRAW BLOOD. PATIENT REFUSING AT THIS TIME.
--- NOTE | 2019-10-04 07:20 | NUR ---
Patient resting quietly with no c/o discomfort. Respirations easy and regular. Vital signs stable. No overt distress. ARTIE ROJO
[2019-10-04 07:44] LABS: BASO % 0.2 % (0.0-1.0); EOS # 0.1 10*3/uL (0.0-0.4); EOS % 1.4 % (1.0-4.0); HEMATOCRIT 28.1 % (42.0-52.0); HEMOGLOBIN 9.3 g/dl (14.0-18.0); LYMPH # 3.1 10*3/uL (1.3-4.4); LYMPH % 38.2 % (27.0-41.0); MEAN CELL VOLUME 94.9 fl (80.0-94.0); MEAN CORPUSCULAR HGB 31.4 pg (27.0-31.0); MEAN CORPUSCULAR HGB CONC 33.1 g/dl (33.0-37.0); MEAN PLATELET VOLUME 10.1 fl (9.6-12.3); MONO # 0.7 10*3/uL (0.1-1.0); MONO % 8.9 % (3.0-9.0); NEUT # 4.1 10*3/uL (2.3-7.9); NEUT % 50.6 % (47.0-73.0); NUCLEATED RED BLOOD CELL 0.2 % (0.0-0.0); PLATELET COUNT AUTOMATED 195 10*3/uL (130-400); RED BLOOD COUNT 2.96 10*6/uL (4.50-5.90); RED CELL DISTRI WIDTH 14.6 % (0-14.5); WHITE BLOOD COUNT 8.1 10*3/uL (4.8-10.8)
[2019-10-04 08:00] VITALS: BP 153/62
--- NOTE | 2019-10-04 08:05 | NUR ---
24 HR AND ENTIRE chart check completed.
[2019-10-04 08:09] LABS: BUN 10 mg/dl (7-24); CHLORIDE 107 mmol/L (98-107); CREATININE 0.92 mg/dL (0.70-1.30); POTASSIUM 3.5 mmol/L (3.5-5.1); SODIUM 143 mmol/L (136-145)
--- NOTE | 2019-10-04 09:54 | NUR ---
Nutritional Support Services Note: Pt is eating well. 100% of all meals. Recives an 1800cal diabetic diet as ordered. Night snack. Discussed diet and adequate protein and calorie intake. Pt is a resident of any area residential. Will follow as needed. Doesn't want a supplement at this time. Mary Beavers Rdn Ld
--- NOTE | 2019-10-04 10:32 | NUR ---
TYLENOL GIVEN FOR H/A 08/07 PT COMPLAINED
--- NOTE | 2019-10-04 11:12 | NUR ---
PT WILL RETURN TO [facility] WHERE HE IS ASSISTANT TO THE [facility] WHEN MEDICALLY STABLE. WILL CONTINUE TO FOLLOW.
--- NOTE | 2019-10-04 11:32 | NUR ---
TYLENOL EFFECTIVE FOR H/A
[2019-10-04 12:00] VITALS: BP 153/56
[2019-10-04 16:00] VITALS: BP 145/69
--- NOTE | 2019-10-04 16:12 | NUR ---
TRANSPORT SET UP FOR PT TO GO BACK TO [facility] BETWEEN 5-5:30 BARRING ANY EMERGENCY CALLS. SUPERVISOR CHAR HOUSE MIMA NOTIFIED. MESSAGE LEFT ON LEGAL GUARDIAN [place].
--- NOTE | 2019-10-04 16:28 | NUR ---
REPORT GIVEN TO NURSE AT [facility], QUESTIONS ANSWERED.
--- NOTE | 2019-10-04 18:30 | NUR ---
LEAVING IN CARE OF AMBULANCE FOR [facility].
== END 2019-10-04 18:30 | DRG 871 ==
LOC: ED 00:27 → 5E 02:11 → EDHOLD 02:11 → 5E 02:18
PROVIDERS: Emergency Medicine; Hospitalist; Internal Medicine; Student in an Organized Health Care Education/Training Program; ADMIT Family Medicine
PROC: B24BZZ4 Ultrasonography of Heart with Aorta, Transesophageal (ICD-10-PCS; principal; 2019-10-02)
PROC: 02HV33Z Insertion of Infusion Device into Superior Vena Cava, Percutaneous Approach (ICD-10-PCS; 2019-10-03)
DX: A41.9 Sepsis, unspecified organism (principal); G93.41 Metabolic encephalopathy; N17.0 Acute kidney failure with tubular necrosis; F20.0 Paranoid schizophrenia; N10 Acute pyelonephritis; Z68.42 Body mass index [BMI] 45.0-49.9, adult; C79.9 Secondary malignant neoplasm of unspecified site; C70.0 Malignant neoplasm of cerebral meninges; R65.20 Severe sepsis without septic shock; F41.9 Anxiety disorder, unspecified; N40.0 Benign prostatic hyperplasia without lower urinary tract symptoms; D22.9 Melanocytic nevi, unspecified; E55.9 Vitamin D deficiency, unspecified; J44.9 Chronic obstructive pulmonary disease, unspecified; E88.09 Other disorders of plasma-protein metabolism, not elsewhere classified; B96.20 Unspecified Escherichia coli [E. coli] as the cause of diseases classified elsewhere; L98.429 Non-pressure chronic ulcer of back with unspecified severity; E66.01 Morbid (severe) obesity due to excess calories; N28.1 Cyst of kidney, acquired; G89.29 Other chronic pain; K57.90 Diverticulosis of intestine, part unspecified, without perforation or abscess without bleeding; D53.9 Nutritional anemia, unspecified; G40.909 Epilepsy, unspecified, not intractable, without status epilepticus; E11.65 Type 2 diabetes mellitus with hyperglycemia; E11.40 Type 2 diabetes mellitus with diabetic neuropathy, unspecified; Z79.82 Long term (current) use of aspirin; Z86.73 Personal history of transient ischemic attack (TIA), and cerebral infarction without residual deficits; Z79.899 Other long term (current) drug therapy; Z90.49 Acquired absence of other specified parts of digestive tract; Z83.3 Family history of diabetes mellitus; Z82.49 Family history of ischemic heart disease and other diseases of the circulatory system; Z80.9 Family history of malignant neoplasm, unspecified; Z79.84 Long term (current) use of oral hypoglycemic drugs

== ENCOUNTER 2019-11-07 23:02 | Emergency (ER) | payer MEDICARE ==
[~2019-11-07] VITALS: Ht 152.4 cm; Wt 127.0 kg
[2019-11-07 23:04] VITALS: BP 129/72
[2019-11-08 00:51] LABS: BASO % 0.4 % (0.0-1.0); EOS # 0.3 10*3/uL (0.0-0.4); EOS % 3.7 % (1.0-4.0); HEMATOCRIT 32.2 % (42.0-52.0); HEMOGLOBIN 10.2 g/dl (14.0-18.0); LYMPH # 2.1 10*3/uL (1.3-4.4); LYMPH % 27.4 % (27.0-41.0); MEAN CELL VOLUME 100.6 fl (80.0-94.0); MEAN CORPUSCULAR HGB 31.9 pg (27.0-31.0); MEAN CORPUSCULAR HGB CONC 31.7 g/dl (33.0-37.0); MONO # 0.6 10*3/uL (0.1-1.0); MONO % 7.3 % (3.0-9.0); NEUT # 4.8 10*3/uL (2.3-7.9); NEUT % 60.9 % (47.0-73.0); PLATELET COUNT AUTOMATED 179 10*3/uL (130-400); RED CELL DISTRI WIDTH 15.1 % (0-14.5); WHITE BLOOD COUNT 7.8 10*3/uL (4.8-10.8)
[2019-11-08 01:10] LABS: ALBUMIN 3.3 gm/dl (3.1-4.5); ALKALINE PHOSPHATASE 46 U/L (45-117); CHLORIDE 111 mmol/L (98-107); CREATININE 1.21 mg/dL (0.70-1.30); POTASSIUM 4.1 mmol/L (3.5-5.1); SGPT/ALT 10 U/L (12-78); SODIUM 143 mmol/L (136-145); TOTAL PROTEIN 8.1 gm/dL (6.4-8.2)
[2019-11-08 01:24] LABS: BUN 14 mg/dl (7-24); SGOT/AST 19 IU/L (3-35)
[2019-11-08 02:34] LABS: BILIRUBIN NEGATIVE (NEGATIVE); BLOOD NEGATIVE (NEGATIVE); CLARITY SL CLOUDY (CLEAR); COLOR YELLOW (YELLOW); GLUCOSE 1+ (NEGATIVE); KETONE TRACE (NEGATIVE); LEUKO ESTERASE TRACE (NEGATIVE); NITRITE NEGATIVE (NEGATIVE); SPECIFIC GRAVITY >= 1.030 (1.005-1.030); UROBILINOGEN 0.2 E.U./dl (0.2-1.0)
[2019-11-08 02:58] LABS: EPITHELIAL CELLS 20-25
[2019-11-08 02:59] LABS: RBC 0-2 rbc/hpf (0-2)
--- NOTE | 2019-11-08 03:35 | NUR ---
ELVIA SHI [id number] Please refer to the physician's history and physical for past medical history, comorbid conditions, and allergies. Diagnosis: N/V X2 DAYS Manny Score: , WOUND DESCRIPTIONS: Wound Number: 1 Right upper posterior thigh, Left upper posterior thigh, left buttocks, right buttocks and intergluteal cleft several partial thickness areas noted with surrounding scar tissue noted at time of assessment. Light amount of serosanguineous drainage noted at time of assessment. Patient was incontient of stool at time of assessment and pericare was provided at this time. Patient complaing of tenderness upon assessment. Bilateral heels are mushy to touch no open areas noted upon assessment. Surface the patient is resting on: ER stretcher SKIN PREVENTION RECOMMENDATION: 1. Pressure redistribution support surface as appropriate 2. Elevate heels 3. Remove boots/TEDS every shift and reapply 4. Head of bed 30 degrees as tolerated 5. Assess nutrition and hydration 6. Manage moisture 7. Avoid the use of containment devices while in bed 8. Use absorptive products on surfaces limit layers of linens on bed 9. Turn and reposition every 1-2 hours in bed and every 1 hour in chair as tolerated 10. Weight shifts every 15 minutes while up in chair 11. Offloading with pillows or device to keep heels elevated off bed 12. Monitor skin at least every shift 13. Inspect under medical devices twice a day WOUND TREATMENT RECOMMENDATIONS: Wheelchair cushion when oob. Heel raiser pro boots to bilateral feet while in bed. Cleanse right buttocks, left buttocks, intergluteal fold, right posterior upper thigh and left posterior upper thigh with soap and water and apply calazime every shift and prn for soiling.
== END 2019-11-08 05:00 | disposition other institution (70) ==
LOC: ED 23:02
PROVIDERS: Emergency Medicine
DX: M53.3 Sacrococcygeal disorders, not elsewhere classified (principal); M79.605 Pain in left leg; L29.9 Pruritus, unspecified; J44.9 Chronic obstructive pulmonary disease, unspecified; E66.01 Morbid (severe) obesity due to excess calories; E11.43 Type 2 diabetes mellitus with diabetic autonomic (poly)neuropathy; M85.871 Other specified disorders of bone density and structure, right ankle and foot; Z79.899 Other long term (current) drug therapy; Z79.82 Long term (current) use of aspirin; Z79.4 Long term (current) use of insulin; Z86.718 Personal history of other venous thrombosis and embolism; Z68.42 Body mass index [BMI] 45.0-49.9, adult

== ENCOUNTER → 2019-11-07 | Outpatient (CLI) | payer MEDICARE ==
[~2019-11-07] MED LIST changes: +ACCUNEB 0.1.25 MG/1 INH; +JARDIANCE10 MG PO; +JARDIANCE25 MG PO; +KEPPRA750 MG PO; +METFORMIN HYDR500 MG PO; +SANADERMRX SKI1 EACH T
== END | disposition home or self-care (01) ==
LOC: RAD/SH 08:50
DX: E04.9 Nontoxic goiter, unspecified (principal)

== ENCOUNTER 2019-11-30 19:34 | Inpatient (IN) | payer MEDICARE ==
[~2019-11-30] VITALS: Ht 175.3 cm; Wt 102.3 kg
[2019-11-30 20:46] VITALS: BP 132/44
[2019-11-30 21:19] LABS: BASO % 0.5 % (0.0-1.0); EOS # 0.3 10*3/uL (0.0-0.4); EOS % 4.1 % (1.0-4.0); HEMATOCRIT 31.6 % (42.0-52.0); HEMOGLOBIN 9.9 g/dl (14.0-18.0); LYMPH # 2.9 10*3/uL (1.3-4.4); LYMPH % 43.7 % (27.0-41.0); MEAN CELL VOLUME 100.3 fl (80.0-94.0); MEAN CORPUSCULAR HGB 31.4 pg (27.0-31.0); MEAN CORPUSCULAR HGB CONC 31.3 g/dl (33.0-37.0); MEAN PLATELET VOLUME 10.2 fl (9.6-12.3); MONO # 0.5 10*3/uL (0.1-1.0); MONO % 7.2 % (3.0-9.0); NEUT % 44.3 % (47.0-73.0); NUCLEATED RED BLOOD CELL 0.3 % (0.0-0.0); PLATELET COUNT AUTOMATED 187 10*3/uL (130-400); RED BLOOD COUNT 3.15 10*6/uL (4.50-5.90); RED CELL DISTRI WIDTH 14.8 % (0-14.5); WHITE BLOOD COUNT 6.7 10*3/uL (4.8-10.8)
[2019-11-30 21:31] LABS: ACT PARTIAL THROMBO TIME 25.7 SECONDS (20.0-32.1); INTERNATIONAL NORM RATIO 0.9 (2.0-3.5)
[2019-11-30 21:33] LABS: ALBUMIN 3.3 gm/dl (3.1-4.5); CREATININE 1.46 mg/dL (0.70-1.30); TOTAL PROTEIN 7.6 gm/dL (6.4-8.2)
[2019-12-01 02:32] LABS: BILIRUBIN NEGATIVE (NEGATIVE); BLOOD NEGATIVE (NEGATIVE); CLARITY SL CLOUDY (CLEAR); COLOR YELLOW (YELLOW); GLUCOSE 3+ (NEGATIVE); KETONE NEGATIVE (NEGATIVE); LEUKO ESTERASE TRACE (NEGATIVE); NITRITE POSITIVE (NEGATIVE); SPECIFIC GRAVITY >= 1.030 (1.005-1.030); UROBILINOGEN 0.2 E.U./dl (0.2-1.0)
[2019-12-01 02:38] LABS: WBC TNTC wbc/hpf (0-5)
[2019-12-01 02:39] LABS: BACTERIA 4+
[2019-12-01 03:25] VITALS: BP 147/76
[2019-12-01] MEDS ORDERED: METFORMIN HCL1000 M1 PO (04:04)
[2019-12-01] MEDS ORDERED: MIRALAX17 GM PO (04:06)
[2019-12-01] MEDS ORDERED: PRANDIN2 MG PO (04:10)
[2019-12-01 06:36] LABS: BASO % 0.3 % (0.0-1.0); EOS # 0.2 10*3/uL (0.0-0.4); EOS % 3.6 % (1.0-4.0); HEMOGLOBIN 9.5 g/dl (14.0-18.0); LYMPH # 2.3 10*3/uL (1.3-4.4); LYMPH % 36.2 % (27.0-41.0); MEAN CORPUSCULAR HGB 31.4 pg (27.0-31.0); MEAN CORPUSCULAR HGB CONC 31.7 g/dl (33.0-37.0); MEAN PLATELET VOLUME 10.3 fl (9.6-12.3); MONO # 0.4 10*3/uL (0.1-1.0); MONO % 6.8 % (3.0-9.0); NEUT # 3.4 10*3/uL (2.3-7.9); NEUT % 52.9 % (47.0-73.0); PLATELET COUNT AUTOMATED 172 10*3/uL (130-400); RED BLOOD COUNT 3.03 10*6/uL (4.50-5.90); RED CELL DISTRI WIDTH 14.5 % (0-14.5); WHITE BLOOD COUNT 6.4 10*3/uL (4.8-10.8)
[2019-12-01 07:01] LABS: BUN 16 mg/dl (7-24); CHLORIDE 112 mmol/L (98-107); CREATININE 1.37 mg/dL (0.70-1.30); PHOSPHOROUS 3.3 mg/dL (2.5-4.9); POTASSIUM 4.2 mmol/L (3.5-5.1); SODIUM 144 mmol/L (136-145)
[2019-12-01 07:11] LABS: FREE T4 0.67 ng/dl (0.76-1.46)
[2019-12-01 08:00] VITALS: BP 144/68
[2019-12-01 12:00] VITALS: BP 148/62
[2019-12-01 16:00] VITALS: BP 156/66
[2019-12-01 20:00] VITALS: BP 140/60
[2019-12-02 08:00] VITALS: BP 146/57
[2019-12-02 12:00] VITALS: BP 140/56
[2019-12-02 16:00] VITALS: BP 141/55
[2019-12-02 20:00] VITALS: BP 160/80
[2019-12-03] VITALS: BP 146/63
[2019-12-03 06:13] LABS: BASO % 0.4 % (0.0-1.0); EOS # 0.3 10*3/uL (0.0-0.4); EOS % 4.9 % (1.0-4.0); HEMATOCRIT 29.8 % (42.0-52.0); HEMOGLOBIN 9.7 g/dl (14.0-18.0); LYMPH # 2.9 10*3/uL (1.3-4.4); LYMPH % 50.6 % (27.0-41.0); MEAN CELL VOLUME 97.4 fl (80.0-94.0); MEAN CORPUSCULAR HGB 31.7 pg (27.0-31.0); MEAN CORPUSCULAR HGB CONC 32.6 g/dl (33.0-37.0); MEAN PLATELET VOLUME 9.8 fl (9.6-12.3); MONO # 0.5 10*3/uL (0.1-1.0); MONO % 8.4 % (3.0-9.0); NEUT % 35.5 % (47.0-73.0); PLATELET COUNT AUTOMATED 169 10*3/uL (130-400); RED BLOOD COUNT 3.06 10*6/uL (4.50-5.90); RED CELL DISTRI WIDTH 14.2 % (0-14.5); WHITE BLOOD COUNT 5.7 10*3/uL (4.8-10.8)
[2019-12-03 06:22] LABS: BUN 12 mg/dl (7-24); CHLORIDE 112 mmol/L (98-107); CREATININE 1.24 mg/dL (0.70-1.30); POTASSIUM 4.4 mmol/L (3.5-5.1); SODIUM 143 mmol/L (136-145)
[2019-12-03 08:00] VITALS: BP 138/64
[2019-12-03 12:00] VITALS: BP 143/68
[2019-12-03] MEDS ORDERED: METHADONE HCL10 MG PO (12:42)
[2019-12-03] MEDS ORDERED: REMEDY CALAZIME4 GM T (12:42)
[2019-12-03] MEDS ORDERED: ATIVAN0.5 MG PO (12:42)
== END 2019-12-03 15:01 | DRG 683 ==
LOC: ED 19:34 → EDHOLD 12-01 00:49 → 5E 12-01 00:49
PROVIDERS: Internal Medicine; Nurse Practitioner Family; ADMIT Family Medicine
DX: N17.0 Acute kidney failure with tubular necrosis (principal); N39.0 Urinary tract infection, site not specified; C79.9 Secondary malignant neoplasm of unspecified site; E44.0 Moderate protein-calorie malnutrition; F20.0 Paranoid schizophrenia; L89.159 Pressure ulcer of sacral region, unspecified stage; E87.8 Other disorders of electrolyte and fluid balance, not elsewhere classified; B96.20 Unspecified Escherichia coli [E. coli] as the cause of diseases classified elsewhere; E11.42 Type 2 diabetes mellitus with diabetic polyneuropathy; J44.9 Chronic obstructive pulmonary disease, unspecified; F41.9 Anxiety disorder, unspecified; G40.909 Epilepsy, unspecified, not intractable, without status epilepticus; R91.8 Other nonspecific abnormal finding of lung field; E07.9 Disorder of thyroid, unspecified; D53.9 Nutritional anemia, unspecified; E55.9 Vitamin D deficiency, unspecified; N40.0 Benign prostatic hyperplasia without lower urinary tract symptoms; G89.29 Other chronic pain; Z66 Do not resuscitate; Z51.5 Encounter for palliative care; E66.9 Obesity, unspecified; Z68.37 Body mass index [BMI] 37.0-37.9, adult; Z79.4 Long term (current) use of insulin; Z79.899 Other long term (current) drug therapy; Z79.82 Long term (current) use of aspirin; Z86.73 Personal history of transient ischemic attack (TIA), and cerebral infarction without residual deficits